=== PATIENT | male | born 1990 | race Caucasian/White ===

== ENCOUNTER 2022-05-20 12:10 | Emergency (ER) | payer SELFPAY ==
[2022-05-20 12:12] VITALS: BP 126/73; PULSE 112; RESP 20; TEMP 36.6; O2SAT 91; BMI 31.8
--- NOTE | 2022-05-20 12:17 | ED.RN ---
NO OLD EKGS.
--- NOTE | 2022-05-20 12:27 | RAD_ITS ---
STUDY: X-RAY CHEST REASON FOR EXAM: Male, 32 years old. Chest pain TECHNIQUE: Single AP portable view of the chest. COMPARISON: None. FINDINGS: Lungs are hypoinflated. There is subtle increased linear density in the lower lung zones. There is no demonstrated pleural abnormality. Normal size heart. Normal mediastinum and guido. Normal visualized pulmonary arteries. Normal visualized aortic arch and descending thoracic aorta. Normal visualized thoracic spine. Normal visualized ribs, clavicles, and shoulders. There is no demonstrated abnormality of the visualized soft tissue structures of the upper abdomen. RAD/Chest 1 View (Portable) IMPRESSION: Hypoinflated lungs. Minimal midlung zone atelectasis. Recommend consideration for PA and lateral film of the chest for clarification if possible. Electronically Signed: Monica Chavez MD at 13:22 EST ,
--- NOTE | 2022-05-20 12:27 | EKG12_ITS ---
Test Reason : CP Blood Pressure : / mmHG Vent. Rate : 105 BPM Atrial Rate : 105 BPM P-R Int : 164 ms QRS Dur : 082 ms QT Int : 362 ms P-R-T Axes : 053 -40 021 degrees QTc Int : 478 ms Sinus tachycardia Left axis deviation Inferior infarct , age undetermined Abnormal ECG Confirmed by ALONSO PERRY, COTY ([id number]), department editor AYESHA LABOY ([id number]) on 05/23/2022 12:19:50 PM Referred By: BUCK Confirmed By:COTY GUPTA MD
--- NOTE | 2022-05-20 12:28 | EDS_ITS ---
HPI History of Present Illness Chief Complaint: Chest Pain Informant: patient and spouse/S.O. Narrative Narrative: 32-year-old male presenting to the emergency department via EMS with a chief complaint of chest pain. Patient recently flew into town. He notes that he has had a prior mid LAD lesion that was stented about 3 years ago. Earlier this year he needed to have ankle surgery and underwent cardiac stress testing and echocardiogram did not have any difficulties with the surgery. He continues to smoke. He takes metoprolol as his only medication. He did have some nitroglycerin but they are and he states that that was not effective at home but the nitroglycerin that EMS gave did help. He noted a central chest pain that radiated up to his left jaw beginning at around 4:00 this morning. No significant sweating syncope or significant shortness of breath. Prehospital EKG was reviewed which showed a sinus tachycardia but no ACS. [facility] Medical History Myocardial infarct Home Medications metoprolol tartrate 50 mg tablet 50 mg PO BID 05/20/22 [History Last Taken Unknown] Allergy/AdvReac Type Severity Reaction Status Date / Time gabapentin Allergy Other Verified 05/20/22 12:12 onion Allergy PT UNABLE Verified 05/20/22 12:12 TO RESPOND-NEEDS F/U Surgical History History of coronary angioplasty with insertion of stent Social History (Updated 05/20/22 @ 12:[address] Daron Sales DO) Smoking Status: Current every day smoker tobacco type: cigarettes substance use type: does not use ROS ROS ED Constitutional Constitutional ED: Denies chills or weight loss Eyes Eyes: Denies change in vision or diplopia ENT ENT ED: Denies ear pain, rhinorrhea or sore throat Cardiovascular Cardiovascular: Reports chest pain; Denies orthopnea, palpitations or racing heartbeat Respiratory/Chest Respiratory/Chest: Denies cough, dyspnea or orthopnea Gastrointestinal Gastrointestinal: Denies abdominal pain, diarrhea, nausea or vomiting Genitourinary Genitourinary ED: Denies dysuria, hematuria or urinary frequency Musculoskeletal Musculoskeletal: Denies arthralgias or myalgias Integumentary Denies abscess or rash Neurologic Neurologic: Denies headache(s) or weakness Psychiatric Psychiatric: Denies anxiety, depression, suicidal ideation or suicidal thoughts Endocrine Endocrinology: Denies polydipsia, polyphagia or polyuria Allergic/Immunologic Allergic/Immunologic ED: Denies mouth swelling, tongue swelling or urticaria EXAM Physical Exam Const Vital Signs: 05/20/22 12:12 05/20/22 13:26 05/20/22 13:32 Temperature 97.9 F Temperature Source Temporal Pulse Rate 112 H 96 91 Respiratory Rate 20 H 16 20 H Blood Pressure 126/73 H 142/98 H 134/99 H Blood Pressure Mean 90 112 110 Pulse Ox 91 96 93 Oxygen Delivery Method Room Air Room Air Room Air Positive well nourished and well developed General Appearance ED: well developed HEENT Reports normocephalic, head/scalp atraumatic and moist mucous membranes Eyes PERRL and EOMs intact bilaterally Neck no lymphadenopathy, supple and no JVD Resp normal respiratory effort and clear to auscultation bilaterally Cardio regular rate, regular rhythm and no murmurs GI normal to inspection, nondistended, normoactive bowel sounds and non-tender Palpation: soft Back/Spine no CVA tenderness and normal ROM Extremity normal to inspection General Extremety ED: Negative for edema General Extremity: Negative for edema Neuro oriented x3 and CN's II-XII intact bilaterally Sensorium / Orientation: alert Motor Exam: strength 5/5 throughout Psych mental status grossly normal Mood & Affect: Negative for depressed or tearful Skin no rashes or lesions noted and no wounds MDM MDM MDM Narrative Medical decision making narrative: My interpretation of the chest x-ray is no acute process. Initial troponin is 5 and this is very important as his symptoms started at 4:00 and were continuous for over 6 hours. D-dimer unfortunately is elevated at 1.11 therefore a CTA of the chest was obtained. The patient became anxious did not want to stay for the CTA he received Vistaril and he stayed for the CTA but then wanted to leave and did not stay for the CT results. He has signed out AMA and appears to have the capacity to make this decision. The CTA did not demonstrate any pulmonary embolism but there was some changes consistent with esophagitis. Perhaps this was the cause of his pain Lab Data Attestation: I reviewed the patient's lab results. Labs: Laboratory Results - last 24 hr 05/20/22 05/20/22 05/20/22 12:30 12:30 12:34 WBC 8.8 RBC 5.17 Hgb 15.5 Hct 45.2 MCV 87.4 MCH 30.0 MCHC 34.3 RDW Std Deviation 45.1 H RDW Coeff of Saji 14.1 Plt Count 249 MPV 10.4 Immature Gran % (Auto) 0.700 Neut % (Auto) 71.4 H Lymph % (Auto) 20.2 [place] % (Auto) 7.3 Eos % (Auto) 0.1 Baso % (Auto) 0.3 Absolute Neuts (auto) 6.3 Absolute Lymphs (auto) 1.78 Nucleated RBC % 0 PT 14.5 INR 1.2 APTT 26.7 D-Dimer Quant (PE/DVT) 1.11 H* Sodium 145 Potassium 2.9 L Chloride 111 H Carbon Dioxide 27.0 Anion Gap 7 BUN 3 L Creatinine 0.66 L Estim Creat Clear Calc 162.84 Est GFR (MDRD) Af Amer 179 Est GFR (MDRD) Non-Af 148 BUN/Creatinine Ratio 4.6 L Glucose 98 Calcium 8.0 L Troponin I High Sens 5 Radiography Diagnostic Testing: Clinical Impression(s) from Imaging Studies Chest X-Ray 05/20/22 12:27 IMPRESSION: Hypoinflated lungs. Minimal midlung zone atelectasis. Recommend consideration for PA and lateral film of the chest for clarification if possible. Electronically Signed: Monica Chavez MD at 13:22 EST , Chest CTA 05/20/22 13:04 IMPRESSION: Thick-walled distended appearing esophagus suspicious for esophagitis without exclusion of atypia. Recommend consideration for follow-up endoscopy. There is a minimal hiatal hernia. No visualized pulmonary embolism. Minimal lower lobe atelectasis. Nonspecific mild loss of height of the upper thoracic vertebral bodies. Hepatic steatosis. Borderline splenomegaly. Electronically Signed: Monica Chavez MD at 14:21 EST , EKG Initial EKG: Attestation: I personally reviewed and interpreted this EKG as follows: Comments: Sinus tachycardia with a ventricular rate of 105 bpm. I do not see any concerning features of ACS. Discharge Plan Triage Chief Complaint: Chest Pain ED Provider: Daron Sales Dx/Rx/DC Orders Clinical Impression: Chest pain, CAD (coronary artery disease) Instructions: ED Chest Pain, Uncertain Cause Prescriptions: No Action metoprolol tartrate 50 mg Tablet 50 mg PO BID Primary Care Provider: Care Physician,No Primary Referrals: NOT,DEFINED [Non-Staff] - Disposition Disposition: Against Medical Advice Discharge Date/Time: 05/20/22 14:37
[2022-05-20 12:40] LABS: Absolute Lymphocyte Count 1.78 X10^3/uL (0.83-4.51); Absolute Neutrophil Count 6.3 X10^3/uL (2.0-7.7); Basophil# 0.03 X10^3/uL; Basophil% 0.3 % (0-1); Eosinophil# 0.01 X10^3/uL; Eosinophils% 0.1 % (0-5); Hematocrit 45.2 % (40-54); Hemoglobin 15.5 g/dL (13.0-16.5); Lymphocyte # 1.78 X10^3/ul (0.83-4.51); Lymphocyte % 20.2 % (19-41); Mean Corp Hgb Conc 34.3 g/dL (32-36); Mean Corpuscular Volume 87.4 fL (80-94); Mean Platelet Vol. 10.4 fl (6.2-12.0); Monocyte# 0.64 X10^3/uL; Monocyte% 7.3 % (0-10); NRBC Flagged by Analyzer 0 % (0-5); Neutrophil % 71.4 % (47-70); Platelet Count 249 K/mm3 (150-450); RBC Distribution Width CV 14.1 % (11.6-14.6); RBC Distribution Width SD 45.1 fl (35.1-43.9); Red Blood Count 5.17 M/mm3 (4.6-6.2); White Blood Count 8.8 K/mm3 (4.4-11.0)
[2022-05-20 12:54] LABS: D-Dimer Quantitative (DVT/PE) 1.11 FEU/ug/m (0.27-0.49)
[2022-05-20 12:58] LABS: International Normalized Ratio 1.2; Prothrombin Time (Protime)PT. 14.5 SECONDS (11.7-14.9)
[2022-05-20 12:59] LABS: Partial Thromboplast Time 26.7 Seconds (24.1-36.2)
[2022-05-20 13:00] LABS: Anion Gap 7 (5-15); BUN 3 mg/dL (7-18); BUN/Creat Ratio 4.6 RATIO (10-20); Chloride 111 mmol/L (98-107); Creatinine, Serum 0.66 mg/dL (0.70-1.30); EST Glomerular Filtration Rate 148 mL/min (>60); Est Glom Filt Rate - Afr Amer 179 mL/min (>60); Estimated Creatinine Clearance 162.84 ml/min; Glucose 98 mg/dL (74-106); Potassium 2.9 mmol/L (3.5-5.1); Sodium Level 145 mmol/L (136-145); Troponin-I HS (w/2H Reflex) 5 pg/mL (3.0-78.0)
--- NOTE | 2022-05-20 13:04 | CT_ITS ---
STUDY: CTA CHEST REASON FOR EXAM: Male, 32 years old. Pulmonary embolism elevated ddimer RADIATION DOSAGE (If Supplied By Facility): CTDIvol = ( 13.47 ) mGy, DLP = ( 437.65 ) mGycm TECHNIQUE: The examination was performed with the intravenous administration of IV 100mL Isovue-370. Post-processing of the angiographic images was performed, with multiplanar reformation and 3D reconstruction. Individualized dose optimization techniques were used for this CT. COMPARISON: May 20, 2022 chest x-ray FINDINGS: Normal enhancement of the main pulmonary artery and right and left pulmonary arteries. Normal enhancement of the bilateral peripheral pulmonary arteries. There is no demonstrated pulmonary embolism. Normal thoracic aorta and visualized great vessels. There is no demonstrated aortic dissection. Normal heart and pericardium. There is a distended thick-walled appearance of the esophagus especially towards the distal aspect of the esophagus. The wall measures up to 8 mm in. There is adjacent fluid at the level of the gastroesophageal junction. Normal hilar regions. Normal visualized trachea and bronchi. There is minimal lower lobe atelectasis without definitive focal infiltrate. Normal pleura. Normal chest wall structures. There is visualized age-indeterminate mild loss of height of the thoracic vertebral bodies within the upper thoracic spine. The liver is enlarged and fatty infiltrated. There is borderline splenomegaly. There is a hiatal hernia. CT/CTA Chest W/WO Contrast IMPRESSION: Thick-walled distended appearing esophagus suspicious for esophagitis without exclusion of atypia. Recommend consideration for follow-up endoscopy. There is a minimal hiatal hernia. No visualized pulmonary embolism. Minimal lower lobe atelectasis. Nonspecific mild loss of height of the upper thoracic vertebral bodies. Hepatic steatosis. Borderline splenomegaly. Electronically Signed: Monica Chavez MD at 14:21 EST ,
--- NOTE | 2022-05-20 13:04 | NURSING ---
NO OLD EKGS
--- NOTE | 2022-05-20 13:10 | ED.RN ---
PT RINGS CALL LIGHT, REPORTS FEELING INCREASINGLY ANXIOUS. PT REPORTS HE WANTS TO LEAVE AMA. THIS RN OFFERS EMOTIONAL SUPPORT, PT PERSISTS THAT HE WANTS TO LEAVE. PT REPORTS HE WILL AIT TO LEAVE AFTER HE TALKS TO MD. DR. JANE AT BEDSIDE TO SPEAK WITH PATIENT.
[2022-05-20] MEDS: hydrOXYzine PAM 25 MG Capsule 50 MG PO (13:22)
[2022-05-20 13:26] VITALS: BP 142/98; PULSE 96; RESP 16; O2SAT 96
[2022-05-20 13:32] VITALS: BP 134/99; PULSE 91; RESP 20; O2SAT 93
--- NOTE | 2022-05-20 13:32 | ED.RN ---
THIS RN RETURN TO BEDSIDE TO FOLLOW UP WITH PT REGARDING THE DISCUSSION HE HAD WITH DR. JANE. PT STILL UNDECIDED. BOYFRIEND AT BEDSIDE TRYING TO CONVINCE PT TO STAY FOR FURTHER TESTING. PT REPORTS CONTINUED ANXIETY. D/C SELF FROM VERIFICATION LEAD. PT THEN AGREE TO STAY LONG ENOUGH FOR THE CT. PT GIVEN MEDS FOR ANXIETY, SEE MAR. PT AGREES TO WEAR VERIFICATION LEAD, MONITOR REPLACED BY THIS RN.
[2022-05-20 14:33] LABS: Reflex Troponin-HS? (from REC) Y
--- NOTE | 2022-05-20 14:37 | ED.RN ---
pt signed out ama
== END 2022-05-20 14:37 | disposition left against medical advice (07) ==
PROVIDERS: Emergency Provider Emergency Medicine; Visit Provider Emergency Medicine
DX: R07.9 Chest pain, unspecified (principal); I25.10 Atherosclerotic heart disease of native coronary artery without angina pectoris; R00.0 Tachycardia, unspecified; Z53.29 Procedure and treatment not carried out because of patient's decision for other reasons; F17.210 Nicotine dependence, cigarettes, uncomplicated
CPT/HCPCS: 71045; 71275; 80048; 84484; 85025; 85379; 85610; 85730; 93005; 99285; Q9967; A4216

== ENCOUNTER 2022-08-28 09:17 | Inpatient (IN) | payer MEDICAID, SELFPAY ==
[2022-08-28] VITALS (7 sets, daily range): BP systolic 126–144; BP diastolic 82–101; PULSE 84–114; RESP 16–18; TEMP 36.1–37; O2SAT 96–100; BMI 29.1; BMI 29.0
--- NOTE | 2022-08-28 10:00 | EDS_ITS ---
HPI History of Present Illness Chief Complaint: Substance Abuse Narrative Narrative: 32-year-old male presenting for alcohol detox. He states has been clean for several years. Due to leg pain from a failed surgery in his left leg he started drinking more over the last week and a half. He admits to about 10-15 tall boys a day. He has not been eating or drinking. He states he had green diarrhea. He states he is only drinking alcohol to help his pain. Patient denies fever, chills. He is not having abdominal pain. He does still complain of severe left leg pain. He states that he did attempt to go to an outpatient facility but they wanted $20,000 upfront and he did not have the money for this. He does report that he gets violently ill if he tries to detox at home. [facility] Medical History History of ankle fracture Myocardial infarct Home Medications metoprolol tartrate 50 mg tablet 50 mg PO BID 05/20/22 [History Last Taken Unknown] Allergy/AdvReac Type Severity Reaction Status Date / Time gabapentin Allergy Other Verified 08/28/22 09:21 onion Allergy PT UNABLE Verified 08/28/22 09:21 TO RESPOND-NEEDS F/U melatonin AdvReac Other Verified 08/28/22 09:21 Surgical History History of coronary angioplasty with insertion of stent Hx of total ankle replacement Social History Smoking Status: Current every day smoker tobacco type: cigarettes substance use type: does not use ROS ROS ED Constitutional Constitutional ED: Denies chills or fever(s) Eyes Eyes: Denies change in vision or diplopia ENT ENT ED: Denies rhinorrhea or sore throat Cardiovascular Cardiovascular: Denies chest pain or palpitations Respiratory/Chest Respiratory/Chest: Denies cough or dyspnea Gastrointestinal Gastrointestinal: Reports nausea and vomiting Genitourinary Genitourinary ED: Denies dysuria Musculoskeletal Musculoskeletal: Denies arthralgias or back pain Integumentary Denies abscess or Abrasions Neurologic Neurologic: Denies headache(s) or paresthesias Psychiatric Psychiatric: Denies anxiety or depression EXAM Physical Exam Const Vital Signs: 08/28/22 09:18 Temperature 98.6 F Temperature Source Temporal Pulse Rate 114 H Respiratory Rate 16 Blood Pressure 134/100 H Blood Pressure Mean 111 Oxygen Delivery Method Room Air Positive well nourished General Appearance ED: NAD; Negative for pallor HEENT Reports moist mucous membranes Eyes PERRL and EOMs intact bilaterally Neck no lymphadenopathy Chest Wall inspection of chest normal and palpation of chest normal Resp normal respiratory effort and clear to auscultation bilaterally Auscultation: Negative for rales, rhonchi or wheezes Cardio regular rate Rate: tachycardic Extremity Extremity Narrative: Surgical scar midline left ankle. No significant swelling or erythema. Patient ambulatory. Neuro oriented x3 and CN's II-XII intact bilaterally Sensorium / Orientation: alert Psych mental status grossly normal and thought process normal Skin General Skin Exam: Negative for jaundice or pallor MDM MDM MDM Narrative Medical decision making narrative: Patient presenting for alcohol detox. He states last drink was today. He wants to detox from alcohol so that he can have a revision surgery on his left ankle. He recently had images of it which showed screws were loose. He states that he was drinking alcohol to deal with the pain. CBC obtained to assess blood cell count, hemoglobin, platelets and differential. CMP to assess liver function, renal function, electrolytes, anion gap. EtOH level was obtained as well as drug abuse screen. Lipase to assess for pancreatitis. Lab work-up fairly unremarkable. Alcohol level 234. Drug of abuse screen negative. Patient discussed with hospitalist for admission. Patient transferred to floor in stable condition. Impression: 1. EtOH intoxication 2. Desire for EtOH detox Lab Data Labs: Laboratory Results - last 24 hr 08/28/22 08/28/22 08/28/22 09:50 09:50 09:50 WBC 9.8 RBC 5.67 Hgb 17.2 H Hct 49.2 MCV 86.8 MCH 30.3 MCHC 35.0 RDW Std Deviation 41.3 RDW Coeff of Saji 13.2 Plt Count 321 MPV 9.5 Immature Gran % (Auto) 0.300 Neut % (Auto) 70.7 H Lymph % (Auto) 19.8 [place] % (Auto) 8.6 Eos % (Auto) 0.2 Baso % (Auto) 0.4 Absolute Neuts (auto) 7.0 Absolute Lymphs (auto) 1.94 Nucleated RBC % 0 Sodium 138 Potassium 3.7 Chloride 101 Carbon Dioxide 26.0 Anion Gap 11 BUN 3 L Creatinine 0.68 L Estim Creat Clear Calc 158.05 Est GFR (MDRD) Af Amer 173 Est GFR (MDRD) Non-Af 143 BUN/Creatinine Ratio 4.4 L Glucose 96 Calcium 9.2 Total Bilirubin 0.40 AST 49 H ALT 55 Alkaline Phosphatase 134 H Total Protein 7.5 Albumin 3.8 Globulin 3.7 Albumin/Globulin Ratio 1.0 Lipase Urine Opiates Screen Urine Methadone Screen Ur Barbiturates Screen Ur Phencyclidine Scrn Ur Amphetamines Screen MDMA (Ecstasy) Screen U Benzodiazepines Scrn Urine Cocaine Screen U Cannabinoids Screen Ur Drug Screen Comment Ethyl Alcohol 234.0 08/28/22 08/28/22 09:50 10:30 WBC RBC Hgb Hct MCV MCH MCHC RDW Std Deviation RDW Coeff of Saji Plt Count MPV Immature Gran % (Auto) Neut % (Auto) Lymph % (Auto) [place] % (Auto) Eos % (Auto) Baso % (Auto) Absolute Neuts (auto) Absolute Lymphs (auto) Nucleated RBC % Sodium Potassium Chloride Carbon Dioxide Anion Gap BUN Creatinine Estim Creat Clear Calc Est GFR (MDRD) Af Amer Est GFR (MDRD) Non-Af BUN/Creatinine Ratio Glucose Calcium Total Bilirubin AST ALT Alkaline Phosphatase Total Protein Albumin Globulin Albumin/Globulin Ratio Lipase 56 L Urine Opiates Screen NEGATIVE Urine Methadone Screen NEGATIVE Ur Barbiturates Screen NEGATIVE Ur Phencyclidine Scrn NEGATIVE Ur Amphetamines Screen NEGATIVE MDMA (Ecstasy) Screen NEGATIVE U Benzodiazepines Scrn NEGATIVE Urine Cocaine Screen NEGATIVE U Cannabinoids Screen NEGATIVE Ur Drug Screen Comment Ethyl Alcohol Discharge Plan Triage Chief Complaint: Substance Abuse ED Provider: Eron Klein Dx/Rx/DC Orders Prescriptions: No Action metoprolol tartrate 50 mg Tablet 50 mg PO BID Primary Care Provider: Dillon Deleon Referrals: Care Physician,No Primary [Non-Staff] -
[2022-08-28 10:01] LABS: Absolute Lymphocyte Count 1.94 X10^3/uL (0.83-4.51); Basophil# 0.04 X10^3/uL; Basophil% 0.4 % (0-1); Eosinophil# 0.02 X10^3/uL; Eosinophils% 0.2 % (0-5); Hematocrit 49.2 % (40-54); Hemoglobin 17.2 g/dL (13.0-16.5); Lymphocyte # 1.94 X10^3/ul (0.83-4.51); Lymphocyte % 19.8 % (19-41); Mean Corpuscular Hgb 30.3 pg (27.0-32.0); Mean Corpuscular Volume 86.8 fL (80-94); Mean Platelet Vol. 9.5 fl (6.2-12.0); Monocyte# 0.84 X10^3/uL; Monocyte% 8.6 % (0-10); NRBC Flagged by Analyzer 0 % (0-5); Neutrophil # 6.95 X10^3/uL (2.7-7.7); Neutrophil % 70.7 % (47-70); Platelet Count 321 K/mm3 (150-450); RBC Distribution Width CV 13.2 % (11.6-14.6); RBC Distribution Width SD 41.3 fl (35.1-43.9); Red Blood Count 5.67 M/mm3 (4.6-6.2); White Blood Count 9.8 K/mm3 (4.4-11.0)
--- NOTE | 2022-08-28 10:10 | CM.ED ---
Social Work Note Referral Source: MD Klein Referral Reason: DARIO Klein met with JESSIE and briefly reviewed patient's symptoms as well as interest in detox program. SW to follow up. SW met with patient and patient's significant other and introduced herself and role as [facility] Director Client Services. Patient was agreeable to speak to SW with significant other present. SW inquired about patient's interest in detox and current AOD use. Patient reports he typically drinks 19 24oz cans of alcohol and his last drink was this morning. SW reviewed [facility] rules including no outside guests, personal belongings are locked up and patient will meet with Kavin, additions counselor, to discuss after care options and discharge planning. Patient reports he was told by his RN guests are allowed. SW explained she would double check but recalls guests aren't allowed and support people are only able to get limited information from nursing staff. JESSIE contacted [place] group therapy counselor to inquire about [facility] visitor rules, group therapy counselor confirmed no visitors and significant others are given very limited information regarding treatment. JESSIE met with patient and confirmed that guests are not permitted. Patient reports understanding and states he was encouraged to contact [facility] to discuss changing his managed plan carrier as [facility] does not accept [employer]. No other needs voiced at this time. [facility] registration staff met with JESSIE and explained the patient was able to switch insurance, however, the change won't start until September 16. Registration staff provided patient with [employer] forms to assist with any bills he received. JESSIE updated treatment navigator patient is in [id number]. Kelsea Rm PINION POLISHER, TORI
[2022-08-28] MEDS: LORazepam 2 MG/ML Syringe 1 MG IV (10:11)
[2022-08-28] MEDS: Ondansetron 4 MG/2 ML Vial IV (10:11)
[2022-08-28] MEDS: 0.9% Normal Saline 1,000 ML 999 ML IV (10:11)
[2022-08-28 10:16] LABS: AST(SGOT) 49 U/L (15-37); Alanine Aminotransfer ALT/SGPT 55 U/L (16-61); Albumin, Serum 3.8 g/dL (3.2-5.0); Alkaline Phosphatase 134 U/L (45-117); Anion Gap 11 (5-15); BUN 3 mg/dL (7-18); BUN/Creat Ratio 4.4 RATIO (10-20); Calcium,Total 9.2 mg/dL (8.5-10.1); Chloride 101 mmol/L (98-107); Creatinine, Serum 0.68 mg/dL (0.70-1.30); EST Glomerular Filtration Rate 143 mL/min (>60); Est Glom Filt Rate - Afr Amer 173 mL/min (>60); Estimated Creatinine Clearance 158.05 ml/min; Globulin 3.7 g/dL (2.2-4.2); Glucose 96 mg/dL (74-106); Potassium 3.7 mmol/L (3.5-5.1); Protein, Total 7.5 g/dL (6.4-8.2); Sodium Level 138 mmol/L (136-145)
[2022-08-28 10:34] LABS: Lipase 56 U/L (73-393)
[2022-08-28 10:57] LABS: Amphetamine Urine VISTA NEGATIVE (<1000 ng/mL); Barbiturate Urine VISTA NEGATIVE (< 200 ng/mL); Benzodiazepine Urine VISTA NEGATIVE (< 200 ng/mL); Cocaine Urine VISTA NEGATIVE (< 300 ng/mL); Ecstacy Urine VISTA NEGATIVE (< 500 ng/mL); Methadone Urine VISTA NEGATIVE (< 300 ng/mL); PCP Urine VISTA NEGATIVE (< 25 ng/mL); THC Urine VISTA NEGATIVE (< 50 ng/mL); Vista UDS pH Range 7
--- NOTE | 2022-08-28 11:55 | HP.PCM.HOS_ITS ---
HPI - General General Date of Admission: 08/28/22 Date of Service: 08/28/22 Chief Complaint: alcohol withdrawal HPI Narrative MOHINDER FLORES, is a 32 M who presents seeking treatment for alcohol withdrawal. Patient drinks 10-15 tall boys (24 oz) beer or Preet's hard lemonade daily for the past week. He states has been drinking more now over the past week due to increased pain in his left ankle. In October of last year, patient broke his ankle when he was going down stairs. Most recently, has been having increased pain and been seeing orthopedics for this. Apparently there was loosening of the hardware that in place that will need to be removed. Patient is planning on having surgery done next week and would like to go through alc ohol withdrawal treatment beforehand. Before his pain started getting worse this past week, he was drinking at least a 12 pack of beer per day. Patient has had issues with severe alcohol withdrawal in the past and would like to get through his alcohol withdrawal before he undergoes surgery. Additionally, patient has been having angina. In 2019, patient underwent cardiac catheterization and had a stent placed for myocardial infarction. Patient has recently seen a women's activities adviser who has cleared him to undergo surgery of the patient does have a echocardiogram ordered for the next . [facility] Medical History (Updated 08/28/22 @ 12:[address] Jake Martino DO) Back fracture ETOH abuse History of ankle fracture Hyponatremia Myocardial infarct Home Medications metoprolol tartrate 50 mg tablet 100 mg PO DAILY 05/20/22 [History Last Taken Unknown] desvenlafaxine 100 mg tablet,extended release 24 hr 100 mg PO DAILY 08/28/22 [History Last Taken Unknown] oxycodone-acetaminophen 10 mg-325 mg tablet 1 tab PO Q8H PRN Pain 08/28/22 [History Last Taken Unknown] Allergy/AdvReac Type Severity Reaction Status Date / Time gabapentin Allergy Other Verified 08/28/22 09:21 onion Allergy PT UNABLE Verified 08/28/22 09:21 TO RESPOND-NEEDS F/U melatonin AdvReac Other Verified 08/28/22 09:21 Surgical History (Updated 08/28/22 @ 11:58 by Sumaya Orta) History of ankle surgery History of coronary angioplasty with insertion of stent Social History (Updated 08/28/22 @ 11:[address] Jake Martino DO) Smoking Status: Current every day smoker tobacco type: cigarettes alcohol intake: current alcohol intake frequency: 3 or more drinks per day Alcohol type: beer and hard liquor substance use type: does not use ROS ROS Narrative All review of systems were negative except as mentioned above in the history of present illness and the other review of systems. Vital Signs Vital Signs Vital Signs: 08/28/22 09:18 08/28/22 11:12 08/28/22 11:18 Temperature 37.0 C 36.1 C L Temperature Source Temporal Temporal Pulse Rate 114 H 92 92 Respiratory Rate 16 18 18 Blood Pressure 134/100 H 126/84 H 126/84 H Blood Pressure Mean 111 98 98 Blood Pressure Source Monitor Blood Pressure Position Supine Blood Pressure Location Left Arm Pulse Ox 98 99 Oxygen Delivery Method Room Air Room Air Room Air 08/28/22 11:18 08/28/22 11:48 Temperature 36.7 C Temperature Source Oral Pulse Rate 96 Respiratory Rate 16 18 Blood Pressure 132/100 H Blood Pressure Mean 110 Blood Pressure Source Monitor Blood Pressure Position Semi-Fowlers Blood Pressure Location Right Arm Pulse Ox 100 Oxygen Delivery Method Room Air Weight Weight: 91.852 kg Body Mass Index (BMI) 29.0 Physical Exam Const alert and no apparent distress HEENT normocephalic, head/scalp atraumatic and hearing grossly normal bilaterally Resp normal respiratory effort, no retractions, no use of accessory muscles and clear to auscultation bilaterally Cardio regular rate, regular rhythm, S1 normal heart sound and S2 normal heart sound GI normal to inspection, nondistended, normoactive bowel sounds, soft to palpation, non-tender and non-distended Extremity Extremity Narrative: Slight edema of the left ankle but no warmth. Neuro moves all extremities and no focal motor deficits Results Lab / Micro Data Result Diagrams: 08/28/22 09:50 08/28/22 09:50 Labs: Laboratory Results - last 24 hr 08/28/22 09:50: WBC 9.8, RBC 5.67, Hgb 17.2 H, Hct 49.2, MCV 86.8, MCH 30.3, MCHC 35.0, RDW Std Deviation 41.3, RDW Coeff of Saji 13.2, Plt Count 321, MPV 9.5, Immature Gran % (Auto) 0.300, Neut % (Auto) 70.7 H, Lymph % (Auto) 19.8, [place] % (Auto) 8.6, Eos % (Auto) 0.2, Baso % (Auto) 0.4, Absolute Neuts (auto) 7.0, Absolute Lymphs (auto) 1.94, Nucleated RBC % 0 08/28/22 09:50: Sodium 138, Potassium 3.7, Chloride 101, Carbon Dioxide 26.0, Anion Gap 11, BUN 3 L, Creatinine 0.68 L, Estim Creat Clear Calc 158.05, Est GFR (MDRD) Af Amer 173, Est GFR (MDRD) Non-Af 143, BUN/Creatinine Ratio 4.4 L, Glucose 96, Calcium 9.2, Total Bilirubin 0.40, AST 49 H, ALT 55, Alkaline Phosphatase 134 H, Total Protein 7.5, Albumin 3.8, Globulin 3.7, Albumin/Globulin Ratio 1.0 08/28/22 09:50: Ethyl Alcohol 234.0 08/28/22 09:50: Lipase 56 L 08/28/22 10:30: Urine Opiates Screen NEGATIVE, Urine Methadone Screen NEGATIVE, Ur Barbiturates Screen NEGATIVE, Ur Phencyclidine Scrn NEGATIVE, Ur Amphetamines Screen NEGATIVE, MDMA (Ecstasy) Screen NEGATIVE, U Benzodiazepines Scrn NEGATIVE, Urine Cocaine Screen NEGATIVE, U Cannabinoids Screen NEGATIVE, Ur Drug Screen Comment Assessment & Plan Assessment/Plan (1) Alcohol withdrawal: PLAN: Initiate treatment with phenobarbital. Thiamine and folate Supportive management with as needed medication (2) Hardware failure: PLAN: Left ankle Patient is already seen orthopedics and reports to me that there is been no concern for infection. Clinically, the joint is not warm nor thematous Patient is to have surgery tentatively for sometime next week (3) Angina pectoris, unspecified: PLAN: Has seen cardiology as outpatient and has been reportedly is cleared. We will check an EKG here. PLAN: Plan Chronic conditions * Coronary artery disease: Not on any statins nor any antiplatelet medications. Continue with metoprolol tartrate * Depression: Continue with desvenlafaxine VTE prophylaxis: Low risk not indicated. Case discussed with patient's fianc? at bedside. Charges/Coding Visit Charges Inpatient E&M: 68139 Init Hosp L2
--- NOTE | 2022-08-28 12:08 | EKG12_ITS ---
Test Reason : ADMISSION Blood Pressure : / mmHG Vent. Rate : 079 BPM Atrial Rate : 079 BPM P-R Int : 188 ms QRS Dur : 084 ms QT Int : 400 ms P-R-T Axes : 047 -19 022 degrees QTc Int : 458 ms Normal sinus rhythm Inferior infarct , age undetermined Abnormal ECG Confirmed by FIDEL PERRY, POLINA ([id number]), multimedia editor AYESHA LABOY ([id number]) on 08/30/2022 9:58:41 AM Referred By: RAINA Confirmed By:POLINA PARRA MD
[2022-08-28] MEDS: Phenobarbital 32.4 MG Tablet 64.8 MG PO ×3 (13:09→20:34)
[2022-08-28] MEDS: Acetaminophen 500 MG Tablet 1000 MG PO (13:10)
[2022-08-28] MEDS: Venlafaxine XR 75 MG Capsule PO (13:11)
[2022-08-28] MEDS: Metoprolol Tartrate 100 MG Tablet PO (13:11)
[2022-08-28] MEDS: Lidocaine 5% Patch 1 PATCH TOPICAL (13:12)
[2022-08-28] MEDS: 0.9% Saline Lock 10 ML Syringe IV (13:15)
[2022-08-28] MEDS: Folic Acid 1 MG Tablet PO (13:54)
[2022-08-28] MEDS: hydrOXYzine PAM 25 MG Capsule 50 MG PO ×2 (13:54→18:07)
[2022-08-28] MEDS: Thiamine Hydrochloride 100 MG Tablet PO (13:54)
--- NOTE | 2022-08-28 15:49 | ADDICTION ---
TW met with pt to complete ASAM, AUDIT, DUDIT, MSE, and begin D/C Planning. Pt stated he has only lived in [place] for 3 months and currently has insurance that does not cover residential treatment within 100 miles of his location. Pt shared that he has f/u appointments to get metal removed from his leg on 09/01, 09/04, and 09/06. He reported he needed to go through detox before his surgery. He reported he is drinking due to chronic pain and is hopeful the surgery will help. He is interested in f/u treatment. TW provided resources for [facility] and AA meetings in [place]. TW will come back tomorrow to see if pt wants to schedule an appt with [facility].
[2022-08-28] MEDS: Ondansetron 8 MG Tablet PO (17:22)
[2022-08-28] MEDS: Dicyclomine 10 MG Capsule 20 MG PO (20:34)
[2022-08-29] VITALS (7 sets, daily range): BP systolic 132–137; BP diastolic 89–102; PULSE 85–99; RESP 18; TEMP 36.3–36.7; O2SAT 95–99
[2022-08-29] MEDS: Phenobarbital 32.4 MG Tablet 64.8 MG PO ×6 (00:46→21:09)
[2022-08-29] MEDS: hydrOXYzine PAM 25 MG Capsule 50 MG PO ×5 (00:46→21:09)
[2022-08-29] MEDS: 0.9% Saline Lock 10 ML Syringe IV ×3 (00:47→21:09)
[2022-08-29] MEDS: Acetaminophen 500 MG Tablet 1000 MG PO ×3 (05:30→21:11)
[2022-08-29] MEDS: Ondansetron 8 MG Tablet PO ×2 (05:36→14:48)
--- NOTE | 2022-08-29 07:35 | PN.HOSP_ITS ---
Reason for Visit Reason for Visit: Diagnoses Alcohol use, unspecified with withdrawal, unspecified (08/28/22) Angina pectoris, unspecified (08/28/22) Subjective Subjective Feeling okay. Denies any visual hallucinations but did hear a small dog jory gonzales. Is unclear if that was the actual dog that was in the hospital if he was hallucinating that. Still with the ankle pain. Patient declining Motrin given his history of gastritis and GI bleed. Is apprehensive about taking acetaminophen as he has been told he has had a fatty liver in the past. Objective Data Objective Data Vital Signs: Vital Signs Temp Pulse Resp BP Pulse Ox O2 Del Method 36.7 C 88 18 133/89 H 96 Room Air 08/29/22 05:29 08/29/22 05:29 08/29/22 05:29 08/29/22 05:29 08/29/22 05:29 08/29/22 05:29 Oxygen Delivery Method Room Air Weight: 91.852 kg Body Mass Index (BMI) 29.0 Intake & Output: Intake and Output for Last 24 Hours 08/27/22 08/28/22 08/29/22 23:59 23:59 23:59 Intake Total 2760 / 2760 800 / 800 Balance 2760 / 2760 800 / 800 Medical Nutrition Assessment Dietitian: Malnutrition Criteria Met Start: 08/28/22 16:26 Freq: Status: Active Protocol: Document 08/28/22 16:26 RMA (Rec: 08/28/22 16:27 RMA [id number]) Nutrition Malnutrition Evidence of Malnutrition Exists Yes Malnutrition (severe): Social/Behavioral/ Environmental Evidenced By Suboptimal Energy Intake ( Severe),Weight Loss (Severe) Clinical Problem Chronic Disease or Condition Related Malnutrition Etiology Severe protein-calorie malnutrition in the context of social circumstance related to ETOH abuse and inadequate oral intake Signs/Symptoms as evidenced by ~9% wt loss x 3 months and PO meeting less than 50% estimated nutrition needs x 1 month Status Active Problem Recommendation Dietitian Recommendations/Changes Continue regular diet with snacks as tolerated. 240 ml ensure plus BID w/ breakfast and dinner as tolerated. Lab / Micro Data Result Diagrams: 08/28/22 09:50 08/28/22 09:50 Labs: Laboratory Results - last 24 hr 08/28/22 09:50: WBC 9.8, RBC 5.67, Hgb 17.2 H, Hct 49.2, MCV 86.8, MCH 30.3, MCHC 35.0, RDW Std Deviation 41.3, RDW Coeff of Saji 13.2, Plt Count 321, MPV 9.5, Immature Gran % (Auto) 0.300, Neut % (Auto) 70.7 H, Lymph % (Auto) 19.8, [place] % (Auto) 8.6, Eos % (Auto) 0.2, Baso % (Auto) 0.4, Absolute Neuts (auto) 7.0, Absolute Lymphs (auto) 1.94, Nucleated RBC % 0 08/28/22 09:50: Sodium 138, Potassium 3.7, Chloride 101, Carbon Dioxide 26.0, Anion Gap 11, BUN 3 L, Creatinine 0.68 L, Estim Creat Clear Calc 158.05, Est GFR (MDRD) Af Amer 173, Est GFR (MDRD) Non-Af 143, BUN/Creatinine Ratio 4.4 L, Glucose 96, Calcium 9.2, Total Bilirubin 0.40, AST 49 H, ALT 55, Alkaline Phosphatase 134 H, Total Protein 7.5, Albumin 3.8, Globulin 3.7, Albumin/Globulin Ratio 1.0 08/28/22 09:50: Ethyl Alcohol 234.0 08/28/22 09:50: Lipase 56 L 08/28/22 10:30: Urine Opiates Screen NEGATIVE, Urine Methadone Screen NEGATIVE, Ur Barbiturates Screen NEGATIVE, Ur Phencyclidine Scrn NEGATIVE, Ur Amphetamines Screen NEGATIVE, MDMA (Ecstasy) Screen NEGATIVE, U Benzodiazepines Scrn NEGATIVE, Urine Cocaine Screen NEGATIVE, U Cannabinoids Screen NEGATIVE, Ur Drug Screen Comment Physical Exam Const alert and no apparent distress HEENT head/scalp atraumatic Extremity no clubbing, cyanosis or edema Extremity Narrative: Left ankle without warmth nor erythema. Neuro oriented x3 and moves all extremities Sensorium / Orientation: awake and alert Psych affect normal Assessment & Plan Assessment/Plan (1) Alcohol withdrawal: PLAN: Initiate treatment with phenobarbital. Thiamine and folate Supportive management with as needed medication (2) Hardware failure: PLAN: Left ankle Patient is already seen orthopedics and reports to me that there is been no concern for infection. Clinically, the joint is not warm nor thematous Patient is to have surgery tentatively for sometime next week Given the patient's impetus for seeking treatment is so that he can undergo surgery and not go through withdrawal and this may not be a long-term recovery solution for him, will initiate oxycodone's as needed. Informed the patient this would be a low-dose. (3) Angina pectoris, unspecified: PLAN: Has seen cardiology as outpatient and has been reportedly is cleared. We will check an EKG here. PLAN: Plan Chronic conditions * Coronary artery disease: Not on any statins nor any antiplatelet medications. Continue with metoprolol tartrate * Depression: Continue with desvenlafaxine VTE prophylaxis: Low risk not indicated. Charges/Coding Visit Charges Inpatient E&M: 66824 Subs Hosp L2
[2022-08-29] MEDS: Venlafaxine XR 75 MG Capsule PO (08:34)
[2022-08-29] MEDS: Folic Acid 1 MG Tablet PO (08:34)
[2022-08-29] MEDS: Thiamine Hydrochloride 100 MG Tablet PO (08:35)
[2022-08-29] MEDS: Metoprolol Tartrate 100 MG Tablet PO (08:35)
[2022-08-29] MEDS: Lidocaine 5% Patch 1 PATCH TOPICAL (08:39)
[2022-08-29] MEDS: Dicyclomine 10 MG Capsule 20 MG PO ×2 (09:41→16:41)
[2022-08-29] MEDS: oxyCODONE 5 MG Tablet PO ×3 (09:41→19:46)
--- NOTE | 2022-08-29 15:01 | ADDICTION ---
TW met with pt to f/u on d/c planning. Pt and TW completed d/c plan and it is placed in chart. Pt is f/u with outpatient individual counseling at [facility] in [place]. Appt is scheduled for 09/04/22 at 10AM.
[2022-08-30] MEDS: Phenobarbital 32.4 MG Tablet 64.8 MG PO ×4 (01:13→12:51)
[2022-08-30] MEDS: oxyCODONE 5 MG Tablet PO ×4 (01:14→14:13)
[2022-08-30] MEDS: hydrOXYzine PAM 25 MG Capsule 50 MG PO ×3 (01:14→11:16)
[2022-08-30 01:25] VITALS: BP 144/98; PULSE 66; RESP 15; TEMP 36.4; O2SAT 100
[2022-08-30 05:30] VITALS: BP 139/98; PULSE 90; RESP 99; TEMP 36.6; O2SAT 16
--- NOTE | 2022-08-30 08:16 | PN.HOSP_ITS ---
Reason for Visit Reason for Visit: Diagnoses Alcohol use, unspecified with withdrawal, unspecified (08/28/22) Angina pectoris, unspecified (08/28/22) Subjective Subjective Feeling better though stated that he did have some profound tremors and melissa phoresis last night. States that his ankle is better with the oxycodone and Lidoderm. Objective Data Objective Data Vital Signs: Vital Signs Temp Pulse Resp BP Pulse Ox O2 Del Method 36.6 C 90 99 H 139/98 H 16 Room Air 08/30/22 05:30 08/30/22 05:30 08/30/22 05:30 08/30/22 05:30 08/30/22 05:30 08/30/22 05:30 Oxygen Delivery Method Room Air Weight: 91.852 kg Body Mass Index (BMI) 29.0 Intake & Output: Intake and Output for Last 24 Hours 08/28/22 08/29/22 08/30/22 23:59 23:59 23:59 Intake Total 2760 / 2760 3140 / 3140 300 / 300 Balance 2760 / 2760 3140 / 3140 300 / 300 Medical Nutrition Assessment Dietitian: Malnutrition Criteria Met Start: 08/28/22 16:26 Freq: Status: Active Protocol: Document 08/28/22 16:26 RMA (Rec: 08/28/22 16:27 RMA [id number]) Nutrition Malnutrition Evidence of Malnutrition Exists Yes Malnutrition (severe): Social/Behavioral/ Environmental Evidenced By Suboptimal Energy Intake ( Severe),Weight Loss (Severe) Clinical Problem Chronic Disease or Condition Related Malnutrition Etiology Severe protein-calorie malnutrition in the context of social circumstance related to ETOH abuse and inadequate oral intake Signs/Symptoms as evidenced by ~9% wt loss x 3 months and PO meeting less than 50% estimated nutrition needs x 1 month Status Active Problem Recommendation Dietitian Recommendations/Changes Continue regular diet with snacks as tolerated. 240 ml ensure plus BID w/ breakfast and dinner as tolerated. Lab / Micro Data Result Diagrams: 08/28/22 09:50 08/28/22 09:50 Physical Exam Const alert and no apparent distress HEENT head/scalp atraumatic Resp normal respiratory effort, no retractions, no use of accessory muscles and clear to auscultation bilaterally Cardio regular rate, regular rhythm, S1 normal heart sound and S2 normal heart sound GI normal to inspection, nondistended, normoactive bowel sounds, soft to palpation, non-tender and non-distended Extremity Extremity Narrative: Left ankle with minimal erythema but tenderness to palpation medially and laterally with mild palpation. No warmth was noted. Assessment & Plan Assessment/Plan (1) Alcohol withdrawal: PLAN: Initiate treatment with phenobarbital. Thiamine and folate Supportive management with as needed medication Anticipate discharge on the . (2) Hardware failure: PLAN: Left ankle Patient is already seen orthopedics and reports to me that there is been no concern for infection. Clinically, the joint is not warm nor erythematous Patient is to have surgery tentatively for sometime next week Given the patient's impetus for seeking treatment is so that he can undergo surgery and not go through withdrawal and this may not be a long-term recovery solution for him, will initiate oxycodone's as needed. Informed the patient this would be a low-dose. Anticipate the patient will be discharged with a low- dose of oxycodone as well as instructed to get [id number] lidocaine patches. Patient to see his orthopedic doctor on the and then to follow-up with cardiology for further evaluation on the . (3) Angina pectoris, unspecified: PLAN: Has seen cardiology as outpatient and has been reportedly is cleared. We will check an EKG here. PLAN: Plan Chronic conditions * Coronary artery disease: Not on any statins nor any antiplatelet medications. Continue with metoprolol tartrate * Depression: Continue with desvenlafaxine VTE prophylaxis: Low risk not indicated. Charges/Coding Visit Charges Inpatient E&M: 79926 Subs Hosp L2
[2022-08-30 09:02] VITALS: PULSE 112
[2022-08-30] MEDS: Metoprolol Tartrate 100 MG Tablet PO (09:02)
[2022-08-30] MEDS: Folic Acid 1 MG Tablet PO (09:02)
[2022-08-30] MEDS: Venlafaxine XR 75 MG Capsule PO (09:02)
[2022-08-30] MEDS: Thiamine Hydrochloride 100 MG Tablet PO (09:03)
[2022-08-30] MEDS: Lidocaine 5% Patch 1 PATCH TOPICAL (09:10)
[2022-08-30 09:15] VITALS: BP 146/103; PULSE 112; RESP 18; TEMP 37.3; O2SAT 98
[2022-08-30] MEDS: 0.9% Saline Lock 10 ML Syringe IV (09:47)
[2022-08-30] MEDS: Acetaminophen 500 MG Tablet 1000 MG PO (14:13)
--- NOTE | 2022-08-30 15:48 | NURSING ---
Pt requesting to leave AMA. Pt wants to leave bc he feels good. This RN explained that it could be the phenobarbital making him feel good and was going to be released tomorrow 08/31. Pt did not want to stay despite the education.
--- NOTE | 2022-08-30 17:21 | DS.PCM_ITS ---
Providers Date of Admission: 08/28/22 Primary Care Physician: Dr. Dillon Deleon MD Reason For Visit: ETOH DETOX Diagnosis Discharge Diagnosis (1) Alcohol withdrawal: Status: Acute Code(s): F10.939 - Alcohol use, unspecified with withdrawal, unspecified Plan: Initiate treatment with phenobarbital. Thiamine and folate Supportive management with as needed medication Anticipate discharge on the . (2) Hardware failure: Status: Acute Plan: Left ankle Patient is already seen orthopedics and reports to me that there is been no concern for infection. Clinically, the joint is not warm nor erythematous Patient is to have surgery tentatively for sometime next week Given the patient's impetus for seeking treatment is so that he can undergo surgery and not go through withdrawal and this may not be a long-term recovery solution for him, will initiate oxycodone's as needed. Informed the patient this would be a low-dose. Anticipate the patient will be discharged with a low- dose of oxycodone as well as instructed to get [id number] lidocaine patches. Patient to see his orthopedic doctor on the and then to follow-up with cardiology for further evaluation on the . (3) Angina pectoris, unspecified: Status: Acute Code(s): I20.9 - Angina pectoris, unspecified Plan: Has seen cardiology as outpatient and has been reportedly is cleared. We will check an EKG here. Plan Chronic conditions * Coronary artery disease: Not on any statins nor any antiplatelet medications. Continue with metoprolol tartrate * Depression: Continue with desvenlafaxine VTE prophylaxis: Low risk not indicated. Medications at Discharge Home Medications metoprolol tartrate 50 mg tablet 100 mg PO DAILY high blood pressure 05/20/22 desvenlafaxine 100 mg tablet,extended release 24 hr 100 mg PO DAILY mood 08/28/22 oxycodone-acetaminophen 10 mg-325 mg tablet 1 tab PO Q8H PRN Pain 08/28/22 Hospital Course Operations None Procedures None Summary of Care Provided Minutes Spent on Discharge: 26 Hospital Course: Pt presented seeking treatment for alcohol withdrawal. He wanted to go through alcohol withdrawal in a controlled setting as he is to have surgery to remove loose hardware in his left ankle next week. He was started on phenobarbital taper. His course was uncomplicated. Last night he had sweats (which he typically develops during withdrawal). I spoke with him today about 1 more day. He was in agreement, to only decide to leave AMA in the afternoon. I was treating his pain with oxycodone. He will not receive a prescription on discharge since he is leaving AMA. Weight / BMI Weight Weight: 91.852 kg Body Mass Index (BMI) 29.0 ABG / Lab / Microbiology Data Result Diagrams: 08/28/22 09:50 08/28/22 09:50 Meaningful Use Info Meaningful Use Diagnoses (Choose all that apply): None applicable Discharge Plan Admission Admit Date/Time: 08/28/22 11:46 Attending Provider: Jake Martino Primary Care Provider: Dillon Deleon Discharge Orders/Prescriptions Prescriptions: No Action metoprolol tartrate 50 mg Tablet 100 mg PO DAILY oxycodone-acetaminophen 10-325 mg Tablet 1 tab PO Q8H PRN (Reason: Pain) desvenlafaxine 100 mg Tablet Extended Release 24 Hr 100 mg PO DAILY Referrals / Follow Up: Dillon Deleon MD [Primary Care Provider] - Care Physician,No Primary [Non-Staff] - Disposition Disposition (needs filled in before D/C Order can be placed): Against Medical Advice Charges/Coding Visit Charges Inpatient E&M: 15937 Disch Hosp
== END 2022-08-30 16:11 | disposition left against medical advice (07) | DRG 770 ==
LOC: ED 10:09 → MS3 11:15
PROVIDERS: Emergency Provider Student in an Organized Health Care Education/Training Program
DX: F10.239 Alcohol dependence with withdrawal, unspecified (principal); E43 Unspecified severe protein-calorie malnutrition; I20.9 Angina pectoris, unspecified; F17.210 Nicotine dependence, cigarettes, uncomplicated; I25.10 Atherosclerotic heart disease of native coronary artery without angina pectoris; Z95.5 Presence of coronary angioplasty implant and graft; F32.A Depression, unspecified; Y90.7 Blood alcohol level of 200-239 mg/100 ml; Z68.29 Body mass index [BMI] 29.0-29.9, adult
CPT/HCPCS: 80053; 80307; 82077; 83690; 85025; 93005; 97802; 99283; 99406; J7030; A4216; J2405

== ENCOUNTER 2022-09-23 10:49 | Inpatient (IN) | payer MEDICAID, SELFPAY ==
[2022-09-23] VITALS (7 sets, daily range): BP systolic 110–137; BP diastolic 70–100; PULSE 86–127; RESP 16–18; TEMP 36.4–37.3; O2SAT 95–99; BMI 64.2; BMI 29.1
--- NOTE | 2022-09-23 11:34 | EX.ED.SAOD ---
HPI History of Present Illness Chief Complaint: Substance Abuse Informant: patient and spouse/S.O. Narrative Narrative: Patient is a 32-year-old male with history of coronary artery disease, recent left ankle surgery through [facility] with Dr. Ashford, and alcohol abuse presenting for alcohol detox. Patient was actually admitted for detox from 08/28/08/30 but did leave AGAINST MEDICAL ADVICE. He had his leg surgery the following week and started drinking shortly after that as a way to deal with his pain. Patient states he has been drinking heavily for couple weeks now. He goes for about 19 cans of 25 ounce beer a day. Denies any drug use. Does use tobacco. His last drink was about an hour ago. He states he is starting to feel little shaky. He does have a history of DTs and seizure. He states this time he is recommend 180 to go to a rehab facility afterwards. He notes that before he had been sober for 7 years and had been taking naltrexone which helped him significantly. He states he lost his insurance and therefore stopped the naltrexone and started drinking again. He is concerned that he might have thrush in his mouth. He has a history of it. He states he is on Levaquin for his surgery. He is most to have his maryann out on Sunday (09/29). He has no other complaints at this time [facility] Medical History Angina pectoris, unspecified Back fracture ETOH abuse History of ankle fracture Hyponatremia Myocardial infarct Home Medications metoprolol tartrate 50 mg tablet 100 mg PO DAILY high blood pressure 05/20/22 [History Last Taken 08/27/22] desvenlafaxine 100 mg tablet,extended release 24 hr 100 mg PO DAILY mood 08/28/22 [History Last Taken 08/27/22] levofloxacin 500 mg tablet 500 mg PO DAILY 09/23/22 [History Last Taken Unknown] Allergy/AdvReac Type Severity Reaction Status Date / Time gabapentin Allergy Other Verified 08/28/22 09:21 onion Allergy Raw onions Verified 08/29/22 12:40 cause Migraines, cooked onions are ok per patient melatonin AdvReac Other Verified 08/28/22 09:21 Surgical History History of ankle surgery History of coronary angioplasty with insertion of stent Social History Smoking Status: Current every day smoker tobacco type: cigarettes alcohol intake: current alcohol intake frequency: 3 or more drinks per day Alcohol type: beer and hard liquor substance use type: does not use ROS ROS ED Constitutional Constitutional ED: Denies chills or fever(s) ENT ENT ED: Reports other Details: throat pain, white tongue ; Denies rhinorrhea or sore throat Cardiovascular Cardiovascular: Denies chest pain or palpitations Respiratory/Chest Respiratory/Chest: Denies cough Gastrointestinal Gastrointestinal: Denies abdominal pain, nausea or vomiting Musculoskeletal Musculoskeletal: Reports other Details: left ankle pain- recent surgery ; Denies arthralgias or myalgias Integumentary Reports other Details: Surgical incision with maryann on the left ankle ; Denies rash Neurologic Neurologic: Denies headache(s) or weakness Psychiatric Psychiatric: Reports other Details: Alcohol dependency ; Denies anxiety EXAM Physical Exam Const Vital Signs: 09/23/22 10:49 Temperature 97.5 F L Temperature Source Temporal Pulse Rate 93 Respiratory Rate 18 Blood Pressure 132/88 H Blood Pressure Mean 102 Pulse Ox 98 Oxygen Delivery Method Room Air Positive well nourished and well developed General Appearance ED: well developed and NAD HEENT Reports dry mucous membranes HEENT Narrative: Thick white plaque on the tongue that does not scrape off. Mouth ED: Yes dry mucous membranes Mouth: dry mucous membranes Eyes PERRL and EOMs intact bilaterally General Eye ED: Negative for scleral icterus Neck supple Lymph Lymphatic: no lymphadenopathy noted Chest Wall inspection of chest normal Resp normal respiratory effort and clear to auscultation bilaterally Cardio regular rate, regular rhythm and no murmurs GI soft to palpation, non-tender and non-distended Extremity Extremity Narrative: Localized edema to incision site on the left anterior ankle/baig. Maryann in place. No drainage. No findings consistent with surgical site infection. General Extremety ED: Yes edema General Extremity: edema Neuro oriented x3 Neuro Narrative: No tremor at this time Sensorium / Orientation: alert Motor Exam: Negative for general weakness Psych mental status grossly normal and thought process normal Skin Skin Narrative: Healing surgical incision left lower leg , see above MDM MDM MDM Narrative Medical decision making narrative: Patient is evaluated for request of alcohol detox. His last drink was this morning. Physical exam is remarkable for possible thrush to the tongue. Otherwise he is well-appearing. He has a healing surgical incision but does not appear infected. He is on prophylactic antibiotics still. Case is discussed with admitting physician, Dr. Martinez, who accepts the patient to his service. He is informed of my findings. EKG is obtained as patient does have a history of coronary artery disease however it does not appear ischemic at this time. History & Record Review Discussion w/independent historian: Patient and Family Additional record(s) reviewed:: Prior inpatient record (Recent admission for alcohol detox) Lab Data Attestation: I reviewed the patient's lab results. Labs: Laboratory Results - last 24 hr 09/23/22 09/23/22 09/23/22 11:30 11:30 11:30 WBC 9.9 RBC 5.46 Hgb 16.6 H Hct 48.0 MCV 87.9 MCH 30.4 MCHC 34.6 RDW Std Deviation 44.7 H RDW Coeff of Saji 14.0 Plt Count 426 MPV 9.6 Immature Gran % (Auto) 0.300 Neut % (Auto) 60.8 Lymph % (Auto) 31.3 [place] % (Auto) 6.4 Eos % (Auto) 0.5 Baso % (Auto) 0.7 Absolute Neuts (auto) 6.0 Absolute Lymphs (auto) 3.08 Nucleated RBC % 0 PT INR Sodium 133 L Potassium 3.9 Chloride 96 L Carbon Dioxide 22.0 Anion Gap 15 BUN 6 L Creatinine 0.82 Estim Creat Clear Calc 131.06 Est GFR (MDRD) Af Amer 138 Est GFR (MDRD) Non-Af 114 BUN/Creatinine Ratio 7.3 L Glucose 83 Calcium 9.1 Total Bilirubin 0.40 AST 35 ALT 47 Alkaline Phosphatase 165 H Total Protein 8.4 H Albumin 4.0 Globulin 4.4 H Albumin/Globulin Ratio 0.9 Urine Opiates Screen Urine Methadone Screen Ur Barbiturates Screen Ur Phencyclidine Scrn Ur Amphetamines Screen MDMA (Ecstasy) Screen U Benzodiazepines Scrn Urine Cocaine Screen U Cannabinoids Screen Ur Drug Screen Comment Ethyl Alcohol 349.0 H* 09/23/22 09/23/22 11:30 11:45 WBC RBC Hgb Hct MCV MCH MCHC RDW Std Deviation RDW Coeff of Saji Plt Count MPV Immature Gran % (Auto) Neut % (Auto) Lymph % (Auto) [place] % (Auto) Eos % (Auto) Baso % (Auto) Absolute Neuts (auto) Absolute Lymphs (auto) Nucleated RBC % PT 13.3 INR 1.0 Sodium Potassium Chloride Carbon Dioxide Anion Gap BUN Creatinine Estim Creat Clear Calc Est GFR (MDRD) Af Amer Est GFR (MDRD) Non-Af BUN/Creatinine Ratio Glucose Calcium Total Bilirubin AST ALT Alkaline Phosphatase Total Protein Albumin Globulin Albumin/Globulin Ratio Urine Opiates Screen NEGATIVE Urine Methadone Screen NEGATIVE Ur Barbiturates Screen NEGATIVE Ur Phencyclidine Scrn NEGATIVE Ur Amphetamines Screen NEGATIVE MDMA (Ecstasy) Screen NEGATIVE U Benzodiazepines Scrn NEGATIVE Urine Cocaine Screen NEGATIVE U Cannabinoids Screen NEGATIVE Ur Drug Screen Comment Ethyl Alcohol Rhythm Strip Rhythm Strip: Sinus Rhythm Rate: 79 Ectopy: None EKG Initial EKG: Attestation: I personally reviewed and interpreted this EKG as follows: Interpretation: Sinus Rhythm Comments: Normal sinus rhythm at a rate of 79 bpm Left axis deviation Prior inferior infarct T wave inversions in inferior leads with no reciprocal changes Prior EKG tracings: available for review Prior: Unchanged Discharge Plan Dx/Rx/DC Orders Clinical Impression: Alcohol dependence, Oral thrush Disposition Disposition: Acute Care Hospital [facility] Discharge Date/Time: 09/23/22 13:42
[2022-09-23 11:50] LABS: Absolute Lymphocyte Count 3.08 X10^3/uL (0.83-4.51); Basophil# 0.07 X10^3/uL; Basophil% 0.7 % (0-1); Eosinophil# 0.05 X10^3/uL; Eosinophils% 0.5 % (0-5); Hemoglobin 16.6 g/dL (13.0-16.5); Lymphocyte # 3.08 X10^3/ul (0.83-4.51); Lymphocyte % 31.3 % (19-41); Mean Corp Hgb Conc 34.6 g/dL (32-36); Mean Corpuscular Hgb 30.4 pg (27.0-32.0); Mean Corpuscular Volume 87.9 fL (80-94); Mean Platelet Vol. 9.6 fl (6.2-12.0); Monocyte# 0.63 X10^3/uL; Monocyte% 6.4 % (0-10); NRBC Flagged by Analyzer 0 % (0-5); Neutrophil # 5.99 X10^3/uL (2.7-7.7); Neutrophil % 60.8 % (47-70); Platelet Count 426 K/mm3 (150-450); RBC Distribution Width SD 44.7 fl (35.1-43.9); Red Blood Count 5.46 M/mm3 (4.6-6.2); White Blood Count 9.9 K/mm3 (4.4-11.0)
[2022-09-23 12:09] LABS: ALB/GLOB Ratio 0.9 RATIO (0.9-2.4); AST(SGOT) 35 U/L (15-37); Alanine Aminotransfer ALT/SGPT 47 U/L (16-61); Alkaline Phosphatase 165 U/L (45-117); Anion Gap 15 (5-15); BUN 6 mg/dL (7-18); BUN/Creat Ratio 7.3 RATIO (10-20); Calcium,Total 9.1 mg/dL (8.5-10.1); Chloride 96 mmol/L (98-107); Creatinine, Serum 0.82 mg/dL (0.70-1.30); EST Glomerular Filtration Rate 114 mL/min (>60); Est Glom Filt Rate - Afr Amer 138 mL/min (>60); Estimated Creatinine Clearance 131.06 ml/min; Globulin 4.4 g/dL (2.2-4.2); Glucose 83 mg/dL (74-106); Potassium 3.9 mmol/L (3.5-5.1); Protein, Total 8.4 g/dL (6.4-8.2); Sodium Level 133 mmol/L (136-145)
[2022-09-23 12:20] LABS: Amphetamine Urine VISTA NEGATIVE (<1000 ng/mL); Barbiturate Urine VISTA NEGATIVE (< 200 ng/mL); Benzodiazepine Urine VISTA NEGATIVE (< 200 ng/mL); Cocaine Urine VISTA NEGATIVE (< 300 ng/mL); Ecstacy Urine VISTA NEGATIVE (< 500 ng/mL); Methadone Urine VISTA NEGATIVE (< 300 ng/mL); PCP Urine VISTA NEGATIVE (< 25 ng/mL); THC Urine VISTA NEGATIVE (< 50 ng/mL); Vista UDS pH Range 5
--- NOTE | 2022-09-23 12:27 | HP.PCM.HOS_ITS ---
[facility] - General General Date of Admission: 09/23/22 Date of Service: 09/23/22 Chief Complaint: Patient came for treatment for alcohol withdrawal symptoms. Recent left ankle elective surgery. HPI Narrative MOHINDER FLORES, is a 32 M who was recently completed alcohol withdrawal program discharged on 08/30/2022 and then had surgery on 09/01/2022 for Left ankle hardware failure by orthopedic surgeon Dr. Ashford at [facility] and then he started drinking beer again. He states he drinks 19 cans of 25 ounce bottle every day. Patient came to ED to seek treatment for alcohol withdrawal and had last alcohol drink just couple hours before ED visit. Patient has history of alcohol withdrawal seizure couple years ago. He also gets visual and auditory hallucination. He also had muscle cramps, tremors. Currently feels some anxiety building up and restlessness. Labs, vitals and EKG reviewed. Vitals in normal range. [facility] Medical History Angina pectoris, unspecified Back fracture ETOH abuse History of ankle fracture Hyponatremia Myocardial infarct Home Medications metoprolol tartrate 50 mg tablet 100 mg PO DAILY high blood pressure 05/20/22 [History Last Taken 08/27/22] desvenlafaxine 100 mg tablet,extended release 24 hr 100 mg PO DAILY mood 08/28/22 [History Last Taken 08/27/22] levofloxacin 500 mg tablet 500 mg PO DAILY 09/23/22 [History Last Taken Unknown] Allergy/AdvReac Type Severity Reaction Status Date / Time gabapentin Allergy Other Verified 08/28/22 09:21 onion Allergy Raw onions Verified 08/29/22 12:40 cause Migraines, cooked onions are ok per patient melatonin AdvReac Other Verified 08/28/22 09:21 Surgical History History of ankle surgery History of coronary angioplasty with insertion of stent Social History Smoking Status: Current every day smoker tobacco type: cigarettes alcohol intake: current alcohol intake frequency: 3 or more drinks per day Alcohol type: beer and hard liquor substance use type: does not use Vital Signs Vital Signs Vital Signs: 09/23/22 10:49 Temperature 97.5 F L Temperature Source Temporal Pulse Rate 93 Respiratory Rate 18 Blood Pressure 132/88 H Blood Pressure Mean 102 Pulse Ox 98 Oxygen Delivery Method Room Air Weight Weight: 447 lb 12.141 oz Body Mass Index (BMI) 64.2 Physical Exam Narrative General: Alert, Oriented x3, Cooperative HEENT: Atraumatic, PERRLA, EOMI, Normocephalic Oral: Tongue coating. No thrush patch seen in oropharyngeal region. No Gingival or Mucosal Lesions/ Ulcerations Neck: Supple, No JVD, Negative Carotid Bruits Lungs: Air entry diminished in bilateral lung bases. No crepitation/rhonchi Cardiovascular: Regular rate, Regular Rhythm, Normal S1, Normal S2, No murmurs Abdomen: Bowel Sounds Present, Soft, Non Tender, Non-Distended : No renal angle tenderness. No suprapubic tenderness. Extremities: No edema, Capillary Refill Less than 3 Seconds Skin: Left ankle maryann intact. Musculoskeletal: No Tenderness to Palpation of Joints or Extremities Neurological: Cranial nerves II-XII grossly intact, DTR 2+/4 and Symmetrical, Neuro grossly intact Psych/Mental Status: Mild anxiety. Results Lab / Micro Data Result Diagrams: 09/23/22 11:30 09/23/22 11:30 Labs: Laboratory Results - last 24 hr 09/23/22 11:30: WBC 9.9, RBC 5.46, Hgb 16.6 H, Hct 48.0, MCV 87.9, MCH 30.4, MCHC 34.6, RDW Std Deviation 44.7 H, RDW Coeff of Saji 14.0, Plt Count 426, MPV 9.6, Immature Gran % (Auto) 0.300, Neut % (Auto) 60.8, Lymph % (Auto) 31.3, [place] % (Auto) 6.4, Eos % (Auto) 0.5, Baso % (Auto) 0.7, Absolute Neuts (auto) 6.0, Absolute Lymphs (auto) 3.08, Nucleated RBC % 0 09/23/22 11:30: Sodium 133 L, Potassium 3.9, Chloride 96 L, Carbon Dioxide 22.0, Anion Gap 15, BUN 6 L, Creatinine 0.82, Estim Creat Clear Calc 131.06, Est GFR (MDRD) Af Amer 138, Est GFR (MDRD) Non-Af 114, BUN/Creatinine Ratio 7.3 L, Glucose 83, Calcium 9.1, Total Bilirubin 0.40, AST 35, ALT 47, Alkaline Phosphatase 165 H, Total Protein 8.4 H, Albumin 4.0, Globulin 4.4 H, Albumin/Globulin Ratio 0.9 09/23/22 11:45: Urine Opiates Screen NEGATIVE, Urine Methadone Screen NEGATIVE, Ur Barbiturates Screen NEGATIVE, Ur Phencyclidine Scrn NEGATIVE, Ur Amphetamines Screen NEGATIVE, MDMA (Ecstasy) Screen NEGATIVE, U Benzodiazepines Scrn NEGATIVE, Urine Cocaine Screen NEGATIVE, U Cannabinoids Screen NEGATIVE, Ur Drug Screen Comment Rhythm Strip Rhythm Strip: Sinus Rhythm Rate: 79 Ectopy: None Assessment & Plan Assessment/Plan (1) Alcohol dependence: PLAN: Plan This is 32-year-old gentleman who came for treatment of acute alcohol withdrawal syndrome. 1. Acute alcohol withdrawal syndrome with history of chronic alcohol use disorder, relapse, dependence and tolerance: Patient is being admitted on Med Surg floor. Patient on phenobarbital based order set along with other adjunctive medications as needed for alcohol withdrawal symptom control. CIWA monitor. Serum alcohol level 349. Liver chemistry normal range except alkaline phosphatase 165. Albumin 4.0. A/G ratio 0.9. 2. Mild anxiety and depression: History of alcohol withdrawal seizure couple years ago. Patient on desvenlafaxine continued. 3. Recent left ankle surgery: The patient had? left ankle surgery by Dr. Ashford, [facility]. He said plates were removed but the screws were left in. Patient does not have activity restriction and he states weightbearing as per tolerated. No cast or cane. PT and OT ordered. He is supposed to see Dr. Castano on 09/29/2022 for staple removal. PT ordered. Patient was given levofloxacin but as patient will be on hydroxyzine and other medication which has QT prolongation interaction with Levaquin therefore Levaquin changed to Keflex. 4. 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 Normal sinus rhythm 79 beats 1, QTc 442 ms. DVT prophylaxis moderate risk due to left ankle surgery. Lovenox 40 mg subcu daily. CODE STATUS: Full code. Patient does not have advance directive Laboratory Results 09/23/22 11:30: WBC 9.9, RBC 5.46, Hgb 16.6 H, Hct 48.0, MCV 87.9, MCH 30.4, MCHC 34.6, RDW Std Deviation 44.7 H, RDW Coeff of Saji 14.0, Plt Count 426, MPV 9.6, Immature Gran % (Auto) 0.300, Neut % (Auto) 60.8, Lymph % (Auto) 31.3, [place] % (Auto) 6.4, Eos % (Auto) 0.5, Baso % (Auto) 0.7, Absolute Neuts (auto) 6.0, Absolute Lymphs (auto) 3.08, Nucleated RBC % 0 09/23/22 11:30: Sodium 133 L, Potassium 3.9, Chloride 96 L, Carbon Dioxide 22.0, Anion Gap 15, BUN 6 L, Creatinine 0.82, Estim Creat Clear Calc 131.06, Est GFR (MDRD) Af Amer 138, Est GFR (MDRD) Non-Af 114, BUN/Creatinine Ratio 7.3 L, Glucose 83, Calcium 9.1, Total Bilirubin 0.40, AST 35, ALT 47, Alkaline Phosphatase 165 H, Total Protein 8.4 H, Albumin 4.0, Globulin 4.4 H, Albumin/Globulin Ratio 0.9 09/23/22 11:30: Ethyl Alcohol 349.0 H* 09/23/22 11:30: PT Pending, INR Pending 09/23/22 11:45: Urine Opiates Screen NEGATIVE, Urine Methadone Screen NEGATIVE, Ur Barbiturates Screen NEGATIVE, Ur Phencyclidine Scrn NEGATIVE, Ur Amphetamines Screen NEGATIVE, MDMA (Ecstasy) Screen NEGATIVE, U Benzodiazepines Scrn NEGATIVE, Urine Cocaine Screen NEGATIVE, U Cannabinoids Screen NEGATIVE, Ur Drug Screen Comment Charges/Coding Visit Charges Inpatient E&M: 41711 Init Hosp L3
--- NOTE | 2022-09-23 12:57 | NURSING ---
MED SURG EPI ALCOHOL DEPENDENCE
[2022-09-23 13:32] LABS: Prothrombin Time (Protime)PT. 13.3 SECONDS (11.7-14.9)
[2022-09-23] MEDS: Cephalexin 500 MG Capsule PO ×2 (14:32→21:49)
[2022-09-23] MEDS: Ondansetron 8 MG Tablet PO ×2 (14:32→23:21)
[2022-09-23] MEDS: Phenobarbital 32.4 MG Tablet 64.8 MG PO ×3 (14:32→21:49)
[2022-09-23] MEDS: Enoxaparin 40 MG/0.4 ML Syringe SC (14:32)
[2022-09-23] MEDS: hydrOXYzine PAM 25 MG Capsule 50 MG PO ×2 (14:33→23:21)
[2022-09-23] MEDS: Acetaminophen 500 MG Tablet PO (14:33)
[2022-09-23] MEDS: Lactated Ringers 1,000 ML 125 ML IV (14:41)
[2022-09-23] MEDS: Metoprolol Tartrate 100 MG Tablet PO (18:28)
[2022-09-23] MEDS: Pantoprazole Sodium 40 MG Tablet PO (19:58)
[2022-09-23] MEDS: Dicyclomine 10 MG Capsule 20 MG PO (19:58)
[2022-09-23] MEDS: oxyCODONE 5 MG Tablet PO (19:58)
[2022-09-23] MEDS: QUEtiapine 25 MG Tablet 50 MG PO (19:59)
[2022-09-23] MEDS: traZODone 100 MG Tablet PO (23:21)
[2022-09-24] VITALS (7 sets, daily range): BP systolic 119–144; BP diastolic 71–85; PULSE 81–105; RESP 16–18; TEMP 36.5–36.9; O2SAT 96–100
[2022-09-24] MEDS: Phenobarbital 32.4 MG Tablet 64.8 MG PO ×6 (02:19→21:33)
[2022-09-24] MEDS: Cephalexin 500 MG Capsule PO ×3 (05:25→21:33)
[2022-09-24] MEDS: oxyCODONE 5 MG Tablet PO ×3 (05:25→18:26)
[2022-09-24 06:15] LABS: Magnesium 2.4 mg/dL (1.6-2.6); Phosphorus 4.3 mg/dL (2.5-4.9)
[2022-09-24] MEDS: Enoxaparin 40 MG/0.4 ML Syringe SC (10:16)
[2022-09-24] MEDS: Thiamine Hydrochloride 100 MG Tablet PO (10:16)
[2022-09-24] MEDS: Metoprolol Tartrate 100 MG Tablet PO (10:16)
[2022-09-24] MEDS: Folic Acid 1 MG Tablet PO (10:16)
[2022-09-24] MEDS: hydrOXYzine PAM 25 MG Capsule 50 MG PO ×3 (10:18→19:38)
[2022-09-24] MEDS: Pantoprazole Sodium 40 MG Tablet PO ×2 (10:18→21:33)
[2022-09-24] MEDS: QUEtiapine 25 MG Tablet 50 MG PO ×2 (10:18→21:33)
[2022-09-24] MEDS: Acetaminophen 500 MG Tablet PO (10:19)
[2022-09-24] MEDS: Ondansetron 8 MG Tablet PO ×2 (10:19→18:25)
[2022-09-24 10:29] LABS: Anion Gap 10 (5-15); BUN 9 mg/dL (7-18); Calcium,Total 9.1 mg/dL (8.5-10.1); Chloride 101 mmol/L (98-107); Creatinine, Serum 0.82 mg/dL (0.70-1.30); EST Glomerular Filtration Rate 114 mL/min (>60); Est Glom Filt Rate - Afr Amer 138 mL/min (>60); Estimated Creatinine Clearance 131.06 ml/min; Glucose 86 mg/dL (74-106); Potassium 4.7 mmol/L (3.5-5.1); Sodium Level 136 mmol/L (136-145)
[2022-09-24] MEDS: 0.9% Normal Saline 1,000 ML 100 ML IV (10:34)
--- NOTE | 2022-09-24 14:11 | PCM.PN.HOSP ---
Reason for Visit Reason for Visit: Diagnoses Alcohol dependence, uncomplicated (09/23/22) Follow-up for acute alcohol withdrawal syndrome. Objective Data Objective Data Vital Signs: Vital Signs Temp Pulse Resp BP Pulse Ox O2 Del Method 98.2 F 105 H 16 139/85 H 98 Room Air 09/24/22 10:00 09/24/22 10:16 09/24/22 10:00 09/24/22 10:16 09/24/22 10:00 09/24/22 10:00 Oxygen Delivery Method Room Air Weight: 203 lb 1.614 oz Body Mass Index (BMI) 29.1 Intake & Output: Intake and Output for Last 24 Hours 09/22/22 09/23/22 09/24/22 23:59 23:59 23:59 Intake Total 1000 / 1400 550 / 550 Output Total 650 / 650 750 / 750 Balance 350 / 750 -200 / -200 Lab / Micro Data Result Diagrams: 09/23/22 11:30 09/24/22 05:04 Labs: Laboratory Results - last 24 hr 09/24/22 05:04: Phosphorus 4.3, Magnesium 2.4 09/24/22 05:04: Sodium 136, Potassium 4.7, Chloride 101, Carbon Dioxide 25.0, Anion Gap 10, BUN 9, Creatinine 0.82, Estim Creat Clear Calc 131.06, Est GFR (MDRD) Af Amer 138, Est GFR (MDRD) Non-Af 114, BUN/Creatinine Ratio 11.0, Glucose 86, Calcium 9.1 Rhythm Strip Rhythm Strip: Sinus Rhythm Rate: 79 Ectopy: None Physical Exam Narrative Patient complaining of severe anxiety restlessness and right lower extremity pain yesterday evening. He was started on low-dose oxycodone as he cannot take ibuprofen with history of GI bleed in the past. Patient was started on Seroquel and his anxiety was better. States allergic to gabapentin and trazodone. General: Alert, Oriented x3, Cooperative HEENT: Atraumatic, PERRLA, EOMI, Normocephalic Oral: Tongue coating. No thrush patch seen in oropharyngeal region. No Gingival or Mucosal Lesions/ Ulcerations Neck: Supple, No JVD, Negative Carotid Bruits Lungs: Air entry diminished in bilateral lung bases. No crepitation/rhonchi Cardiovascular: Regular rate, Regular Rhythm, Normal S1, Normal S2, No murmurs Abdomen: Bowel Sounds Present, Soft, Non Tender, Non-Distended : No renal angle tenderness. No suprapubic tenderness. Extremities: No edema, Capillary Refill Less than 3 Seconds Skin: Left ankle maryann intact. Musculoskeletal: No Tenderness to Palpation of Joints or Extremities Neurological: Cranial nerves II-XII grossly intact, DTR 2+/4 and Symmetrical, Neuro grossly intact Psych/Mental Status: Anxiety and restlessness improving. Assessment & Plan Assessment/Plan (1) Alcohol dependence: PLAN: Plan This is 32-year-old gentleman who came for treatment of acute alcohol withdrawal syndrome. 1. Acute alcohol withdrawal syndrome with history of chronic alcohol use disorder, relapse, dependence and tolerance: Patient is being admitted on Medr floor. Patient on phenobarbital based order set along with other adjunctive medications as needed for alcohol withdrawal symptom control. CIWA monitor. Serum alcohol level 349. Liver chemistry normal range except alkaline phosphatase 165. Albumin 4.0. A/G ratio 0.9. 09/24: Patient on the above medications. CIWA score is 7. Seroquel was added in place of trazodone. Labs reviewed. Electrolytes are in normal range. 2. Mild anxiety and depression: History of alcohol withdrawal seizure couple years ago. Patient on desvenlafaxine continued. 3. Recent left ankle surgery: The patient had? left ankle surgery by Dr. Ashford, [facility]. He said plates were removed but the screws were left in. Patient does not have activity restriction and he states weightbearing as per tolerated. No cast or cane. PT and OT ordered. He is supposed to see Dr. Castano on 09/29/2022 for staple removal. PT ordered. Patient was given levofloxacin but as patient will be on hydroxyzine and other medication which has QT prolongation interaction with Levaquin therefore Levaquin changed to Keflex. 09/24: Complained of pain over left ankle and leg yesterday started low-dose oxycodone. Pain is improved. Soap and water wound cleaning and mupirocin. Wound nurse consult 4. 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 Normal sinus rhythm 79 beats 1, QTc 442 ms. DVT prophylaxis moderate risk due to left ankle surgery. Lovenox 40 mg subcu daily. CODE STATUS: Full code. Patient does not have advance directive Charges/Coding Visit Charges Inpatient E&M: 20349 Subs Hosp L2
[2022-09-24] MEDS: Dicyclomine 10 MG Capsule 20 MG PO (15:28)
[2022-09-24] MEDS: Mupirocin Ointment 22gm Tube 1 APPLIC TOPICAL (18:25)
[2022-09-24] MEDS: traZODone 100 MG Tablet PO (21:33)
[2022-09-25] MEDS: oxyCODONE 5 MG Tablet PO ×4 (02:02→21:27)
[2022-09-25] MEDS: Phenobarbital 32.4 MG Tablet 64.8 MG PO ×6 (02:02→21:27)
[2022-09-25 02:10] VITALS: BP 133/87; PULSE 86; RESP 18; TEMP 36.7; O2SAT 95
[2022-09-25] MEDS: Cephalexin 500 MG Capsule PO ×3 (05:27→21:04)
[2022-09-25 05:33] VITALS: BP 121/79; PULSE 76; RESP 17; TEMP 36.3; O2SAT 98
[2022-09-25 08:10] VITALS: BP 124/78; PULSE 91; RESP 18; TEMP 36.8; O2SAT 100
[2022-09-25] MEDS: Pantoprazole Sodium 40 MG Tablet PO ×2 (08:15→21:04)
[2022-09-25 08:19] VITALS: PULSE 91
[2022-09-25] MEDS: Folic Acid 1 MG Tablet PO (08:19)
[2022-09-25] MEDS: QUEtiapine 25 MG Tablet 50 MG PO ×2 (08:19→21:04)
[2022-09-25] MEDS: Metoprolol Tartrate 100 MG Tablet PO (08:19)
[2022-09-25] MEDS: Enoxaparin 40 MG/0.4 ML Syringe SC (08:20)
[2022-09-25] MEDS: Thiamine Hydrochloride 100 MG Tablet PO (08:20)
[2022-09-25] MEDS: hydrOXYzine PAM 25 MG Capsule 50 MG PO ×3 (08:29→21:27)
--- NOTE | 2022-09-25 08:38 | WOUNDNOTE ---
wound photo: left anterior ankle
[2022-09-25] MEDS: Senna Tablet 2 TABLET PO (09:50)
[2022-09-25] MEDS: Dicyclomine 10 MG Capsule 20 MG PO ×2 (09:51→18:42)
--- NOTE | 2022-09-25 14:01 | NURSING ---
Addendum entered by Giovanny Buitrago 09/25/22 14:04: [facility] at Original Note: recieved call for intake; pt will go to [facility] SundaySeptember 27 at 10am [place] [address]; phone # [phone]; fax # [phone] we are to fax his record and send a hard copy with pt.
[2022-09-25] MEDS: Ondansetron 8 MG Tablet PO (14:49)
[2022-09-25] MEDS: 0.9% Saline Lock 10 ML Syringe IV (14:52)
[2022-09-25 14:54] VITALS: BP 123/79; PULSE 76; RESP 19; TEMP 36.6; O2SAT 97
--- NOTE | 2022-09-25 16:56 | PCM.PN.HOSP ---
Reason for Visit Reason for Visit: Diagnoses Alcohol dependence, uncomplicated (09/23/22) Follow-up for acute alcohol withdrawal syndrome Objective Data Objective Data Vital Signs: Vital Signs Temp Pulse Resp BP Pulse Ox O2 Del Method 97.8 F 76 19 H 123/79 H 97 Room Air 09/25/22 14:54 09/25/22 14:54 09/25/22 14:54 09/25/22 14:54 09/25/22 14:54 09/25/22 14:54 Oxygen Delivery Method Room Air Weight: 203 lb 1.614 oz Body Mass Index (BMI) 29.1 Intake & Output: Intake and Output for Last 24 Hours 09/23/22 09/24/22 09/25/22 23:59 23:59 23:59 Intake Total 1000 / 1400 1550 / 2010 1380 / 1380 Output Total 650 / 650 1450 / 1450 350 / 350 Balance 350 / 750 100 / 560 1030 / 1030 Lab / Micro Data Result Diagrams: 09/23/22 11:30 09/24/22 05:04 Rhythm Strip Rhythm Strip: Sinus Rhythm Rate: 79 Ectopy: None Physical Exam Narrative Patient's symptoms of alcohol withdrawal are much better. Physical exam findings General: Alert, Oriented x3, Cooperative HEENT: Atraumatic, PERRLA, EOMI, Normocephalic Oral: Tongue coating. No thrush patch seen in oropharyngeal region. No Gingival or Mucosal Lesions/ Ulcerations Neck: Supple, No JVD, Negative Carotid Bruits Lungs: Air entry diminished in bilateral lung bases. No crepitation/rhonchi Cardiovascular: Regular rate, Regular Rhythm, Normal S1, Normal S2, No murmurs Abdomen: Bowel Sounds Present, Soft, Non Tender, Non-Distended : No renal angle tenderness. No suprapubic tenderness. Extremities: No edema, Capillary Refill Less than 3 Seconds Skin: Left ankle maryann intact. Musculoskeletal: No Tenderness to Palpation of Joints or Extremities Neurological: Cranial nerves II-XII grossly intact, DTR 2+/4 and Symmetrical, Neuro grossly intact Psych/Mental Status: Anxiety and restlessness improving. Assessment & Plan Assessment/Plan (1) Alcohol dependence: PLAN: Plan This is 32-year-old gentleman who came for treatment of acute alcohol withdrawal syndrome. 1. Acute alcohol withdrawal syndrome with history of chronic alcohol use disorder, relapse, dependence and tolerance: Patient is being admitted on MedSur floor. Patient on phenobarbital based order set along with other adjunctive medications as needed for alcohol withdrawal symptom control. CIWA monitor. Serum alcohol level 349. Liver chemistry normal range except alkaline phosphatase 165. Albumin 4.0. A/G ratio 0.9. 09/24: Patient on the above medications. CIWA score is 7. Seroquel was added in place of trazodone. Labs reviewed. Electrolytes are in normal range Patient was started on Seroquel and his anxiety was better. States allergic to gabapentin and trazodone. 2. Mild anxiety and depression: History of alcohol withdrawal seizure couple years ago. Patient on desvenlafaxine continued. 3. Recent left ankle surgery: The patient had? left ankle surgery by Dr. Ashford, [facility]. He said plates were removed but the screws were left in. Patient does not have activity restriction and he states weightbearing as per tolerated. No cast or cane. PT and OT ordered. He is supposed to see Dr. Castano on 09/29/2022 for staple removal. PT ordered. Patient was given levofloxacin but as patient will be on hydroxyzine and other medication which has QT prolongation interaction with Levaquin therefore Levaquin changed to Keflex..He was started on low-dose oxycodone as he cannot take ibuprofen with history of GI bleed in the past. 09/24: Complained of pain over left ankle and leg yesterday started low-dose oxycodone. Pain is improved. Soap and water wound cleaning and mupirocin. Wound nurse consult 09/25: 4. History of old DC: Twelve-lead EKG reviewed. 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 Normal sinus rhythm 79 beats 1, QTc 442 ms. DVT prophylaxis moderate risk due to left ankle surgery. Lovenox 40 mg subcu daily. CODE STATUS: Full code. Patient does not have advance directive Charges/Coding Visit Charges Inpatient E&M: 45576 Subs Hosp L2
[2022-09-25 21:15] VITALS: BP 123/89; PULSE 80; RESP 18; TEMP 36.6; O2SAT 97
[2022-09-25] MEDS: traZODone 100 MG Tablet PO (21:27)
[2022-09-26] MEDS: Phenobarbital 32.4 MG Tablet 64.8 MG PO ×2 (04:11→09:51)
[2022-09-26] MEDS: oxyCODONE 5 MG Tablet PO ×2 (04:11→09:51)
[2022-09-26] MEDS: Cephalexin 500 MG Capsule PO (04:11)
[2022-09-26 04:21] VITALS: BP 115/78; PULSE 70; RESP 18; TEMP 36.6; O2SAT 94
[2022-09-26 08:02] VITALS: BP 126/84; PULSE 76; RESP 17; TEMP 36.3; O2SAT 100
[2022-09-26] MEDS: Enoxaparin 40 MG/0.4 ML Syringe SC (08:03)
[2022-09-26] MEDS: Thiamine Hydrochloride 100 MG Tablet PO (08:04)
[2022-09-26 08:05] VITALS: PULSE 76
[2022-09-26] MEDS: Folic Acid 1 MG Tablet PO (08:05)
[2022-09-26] MEDS: Metoprolol Tartrate 100 MG Tablet PO (08:05)
[2022-09-26] MEDS: Pantoprazole Sodium 40 MG Tablet PO (08:06)
[2022-09-26] MEDS: QUEtiapine 25 MG Tablet 50 MG PO (08:07)
[2022-09-26] MEDS: hydrOXYzine PAM 25 MG Capsule 50 MG PO (08:14)
--- NOTE | 2022-09-26 09:14 | DCINST_ITS ---
Discharge Instructions Diet Discharge Diet: No restrictions Activity Discharge Activity: Return to Normal Activity Weight Bearing Status: Weight bearing as tolerated Dressing / Incision Call your doctor if you observe: Fever of 101 or Higher, Coldness, Increased Pain, Numbness or Tingling, Change in Color, Inability to urinate, Inability to have a bowel movement, Shortness of breath, Dizziness, Fainting spells, Swelling in the ankles, Chest pain, Prolonged hiccupping, Increased palpitations (irregular heartbeat) and Calf discomfort Follow Up Care When: IN 2 WEEKS Test Results: Test results from this visit will be discussed in further detail at your follow- up appointment, if applicable. Discharge Plan Admission Admit Date/Time: 09/23/22 12:21 Primary Reason for Your Visit: Acute alcohol withdrawal syndrome Attending Provider: Varun Kauffman Primary Care Provider: Dillon Deleon Discharge Orders/Prescriptions Prescriptions: New thiamine HCl (vitamin B1) [Vitamin B-1] 100 mg Tablet 100 mg PO DAILYCM Qty: 0 0RF cephalexin 500 mg Capsule 500 mg PO Q8 5 Days Qty: 15 0RF pantoprazole 40 mg Tablet,Delayed Release (Dr/Ec) 40 mg PO DAILY 30 Days Qty: 30 0RF nicotine 21 mg/24 hr Patch 24 Hour 21 mg transdermal DAILY 30 Days Qty: 0 0RF folic acid 1 mg Tablet 1 mg PO DAILY@0800 Qty: 0 0RF Continued metoprolol tartrate 50 mg Tablet 100 mg PO DAILY desvenlafaxine 100 mg Tablet Extended Release 24 Hr 100 mg PO DAILY Discontinued levofloxacin [Levaquin] 500 mg Tablet 500 mg PO DAILY Referrals / Follow Up: Dillon Deleon MD [Primary Care Provider] - Disposition Disposition (needs filled in before D/C Order can be placed): Home, Self Care
--- NOTE | 2022-09-26 09:19 | DS.PCM_ITS ---
Providers Date of Admission: 09/23/22 Date of Discharge: 09/26/22 Primary Care Physician: Dr. Dillon Deleon MD Consultations 09/24/22 14:14 Consult: Onc/Wound/social insurance adviser Routine Comment: Reason for Consult:: left ankle staple Reason For Visit: ALCOHOL USE DISORDER Diagnosis Discharge Diagnosis (1) Alcohol dependence: Status: Acute Code(s): F10.20 - Alcohol dependence, uncomplicated Plan This is 32-year-old gentleman who came for treatment of acute alcohol withdrawal syndrome. 1.? Acute alcohol withdrawal syndrome with history of chronic alcohol use disorder, relapse, dependence and tolerance: Patient is being admitted on Medr floor.? Patient on phenobarbital based order set along with other adjunctive medications as needed for alcohol withdrawal symptom control.? CIWA monitor.? Serum alcohol level 349.? Liver chemistry normal range except alkaline phosphatase 165.? Albumin 4.0.? A/G ratio 0.9. 09/24: Patient on the above medications.? CIWA score is 7.? Seroquel was added in place of trazodone.? Labs reviewed.? Electrolytes are in normal range? Patient was started on Seroquel and his anxiety was better.? States allergic to gabapentin and trazodone. 09/25: CIWA score is 4. Alcohol withdrawals have much improved. Patient is going to inpatient alcohol rehab program. 2.? Mild anxiety and depression: History of alcohol withdrawal seizure couple years ago.? Patient on desvenlafaxine continued. 3.? Recent left ankle surgery: The patient had? left ankle surgery by Dr. Ashford, [facility].? He said plates were removed but the screws were left in.? Patient does not have activity restriction and he states weightbearing as per tolerated.? No cast or cane.? PT and OT ordered.? He is supposed to see Dr. Castano on 09/29/2022 for staple removal.? PT ordered.? Patient was given levofloxacin but as patient will be on hydroxyzine and other medication which has QT prolongation interaction with Levaquin therefore Levaquin changed to Keflex..He was started on low-dose oxycodone as he cannot take ibuprofen with history of GI bleed in the past. 09/24: Complained of pain over left ankle and leg yesterday started low-dose oxyc odone.? Pain is improved.? Soap and water wound cleaning and mupirocin.? Wound nurse consult 09/26: Patient advised to follow-up with orthopedic surgeon on coming Sunday. Advised to use cane until then. ?4.? History of old FL: Twelve-lead EKG reviewed.? 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 Normal sinus rhythm 79 beats 1, QTc 442 ms.? DVT prophylaxis moderate risk due to left ankle surgery.? Lovenox 40 mg subcu daily. CODE STATUS: Full code.? Patient does not have advance directive Discharge medication reconciliation done. Discharge follow-up instructions completed. Discharge process discussed with the patient and all questions were answered to patient's satisfaction. Total time spent, exact 35 minutes on discharge meds reconciliation, examination, coordination of care with nurses and ancillary staff, review of imaging and blood test and discussion with the patient on follow-up instruc tions. Medications at Discharge Home Medications metoprolol tartrate 50 mg tablet 100 mg PO DAILY high blood pressure 05/20/22 desvenlafaxine 100 mg tablet,extended release 24 hr 100 mg PO DAILY mood 08/28/22 cephalexin 500 mg capsule 500 mg PO Q8 5 days #15 caps 09/26/22 folic acid 1 mg tablet 1 mg PO DAILY@0800 #0 tabs 09/26/22 nicotine 21 mg/24 hr daily transdermal patch 21 mg transdermal DAILY 30 days #0 ea 09/26/22 pantoprazole 40 mg tablet,delayed release 40 mg PO DAILY 30 days #30 tabs 09/26/22 thiamine HCl (vitamin B1) 100 mg tablet (Vitamin B-1) 100 mg PO DAILYCM #0 tabs 09/26/22 Physical Exam Narrative Patient's symptoms of alcohol withdrawal are much better. Physical exam findings General: Alert, Oriented x3, Cooperative HEENT: Atraumatic, PERRLA, EOMI, Normocephalic Oral: Tongue coating. No thrush patch seen in oropharyngeal region. No Gingival or Mucosal Lesions/ Ulcerations Neck: Supple, No JVD, Negative Carotid Bruits Lungs: Air entry diminished in bilateral lung bases. No crepitation/rhonchi Cardiovascular: Regular rate, Regular Rhythm, Normal S1, Normal S2, No murmurs Abdomen: Bowel Sounds Present, Soft, Non Tender, Non-Distended : No renal angle tenderness. No suprapubic tenderness. Extremities: No edema, Capillary Refill Less than 3 Seconds Skin: Left ankle maryann intact. Musculoskeletal: No Tenderness to Palpation of Joints or Extremities Neurological: Cranial nerves II-XII grossly intact, DTR 2+/4 and Symmetrical, Neuro grossly intact Psych/Mental Status: Anxiety and restlessness improving. Withdrawal symptoms are much improved Weight / BMI Weight Weight: 203 lb 1.614 oz Body Mass Index (BMI) 29.1 ABG / Lab / Microbiology Data Result Diagrams: 09/23/22 11:30 09/24/22 05:04 D/C Instructions Discharge Diet: No restrictions Weight Bearing Status: Weight bearing as tolerated Call your doctor if you observe: Fever of 101 or Higher, Coldness, Increased Pain, Numbness or Tingling, Change in Color, Inability to urinate, Inability to have a bowel movement, Shortness of breath, Dizziness, Fainting spells, Swelling in the ankles, Chest pain, Prolonged hiccupping, Increased palpitations (irregular heartbeat) and Calf discomfort When: IN 2 WEEKS Meaningful Use Info Meaningful Use Diagnoses (Choose all that apply): None applicable Discharge Plan Admission Admit Date/Time: 09/23/22 12:21 Primary Reason for Your Visit: Acute alcohol withdrawal syndrome Attending Provider: Varun Kauffman Primary Care Provider: Dillon Deleon Discharge Orders/Prescriptions Prescriptions: New thiamine HCl (vitamin B1) [Vitamin B-1] 100 mg Tablet 100 mg PO DAILYCM Qty: 0 0RF cephalexin 500 mg Capsule 500 mg PO Q8 5 Days Qty: 15 0RF pantoprazole 40 mg Tablet,Delayed Release (Dr/Ec) 40 mg PO DAILY 30 Days Qty: 30 0RF nicotine 21 mg/24 hr Patch 24 Hour 21 mg transdermal DAILY 30 Days Qty: 0 0RF folic acid 1 mg Tablet 1 mg PO DAILY@0800 Qty: 0 0RF Continued metoprolol tartrate 50 mg Tablet 100 mg PO DAILY desvenlafaxine 100 mg Tablet Extended Release 24 Hr 100 mg PO DAILY Discontinued levofloxacin [Levaquin] 500 mg Tablet 500 mg PO DAILY Referrals / Follow Up: Dillon Deleon MD [Primary Care Provider] - Disposition Disposition (needs filled in before D/C Order can be placed): Home, Self Care Charges/Coding Visit Charges Inpatient E&M: 18445 Disch Hosp >30min
--- NOTE | 2022-09-26 09:39 | PHA.DC.MR ---
Pharmacy Service has performed discharge medication reconciliation for this patient. The patient's discharge medication list was reviewed for discrepancies and discrepancies were resolved. Home Medications metoprolol tartrate 50 mg tablet 100 mg PO DAILY high blood pressure 05/20/22 desvenlafaxine 100 mg tablet,extended release 24 hr 100 mg PO DAILY mood 08/28/22 cephalexin 500 mg capsule 500 mg PO Q8 5 days #15 caps 09/26/22 folic acid 1 mg tablet 1 mg PO DAILY@0800 #0 tabs 09/26/22 nicotine 21 mg/24 hr daily transdermal patch 21 mg transdermal DAILY 30 days #0 ea 09/26/22 pantoprazole 40 mg tablet,delayed release 40 mg PO DAILY 30 days #30 tabs 09/26/22 thiamine HCl (vitamin B1) 100 mg tablet (Vitamin B-1) 100 mg PO DAILYCM #0 tabs 09/26/22
== END 2022-09-26 09:57 | disposition home or self-care (01) | DRG 775 ==
LOC: ED 12:26 → MS3 12:55
PROVIDERS: Admitting Provider Internal Medicine; Emergency Provider Emergency Medicine; Referring Provider Emergency Medicine; Visit Provider Internal Medicine
DX: F10.939 Alcohol use, unspecified with withdrawal, unspecified (principal); B37.0 Candidal stomatitis; I25.10 Atherosclerotic heart disease of native coronary artery without angina pectoris; F17.210 Nicotine dependence, cigarettes, uncomplicated; M25.572 Pain in left ankle and joints of left foot; I25.2 Old myocardial infarction; F41.9 Anxiety disorder, unspecified; Z95.5 Presence of coronary angioplasty implant and graft; F32.A Depression, unspecified; Y90.8 Blood alcohol level of 240 mg/100 ml or more
CPT/HCPCS: 36415; 80048; 80053; 80307; 82077; 83735; 84100; 85025; 85610; 93005; 97162; 97802; 99284; J7030; J7120; A4216

== ENCOUNTER 2023-05-04 22:01 | Emergency (ER) | payer MEDICAID, SELFPAY ==
[2023-05-04 22:03] VITALS: BP 143/85; PULSE 124; RESP 17; TEMP 36.6; O2SAT 93; BMI 37.7
--- NOTE | 2023-05-04 22:22 | EX.ED.DYSGE1 ---
HPI History of Present Illness Chief Complaint: Med Refill Informant: patient Narrative Narrative: Patient is a 33-year-old male with past medical history of alcohol abuse and reported previous CAD requiring stent placement. He states he has been taking Suboxone and using it as control to help prevent any alcohol use and he states he has been sober for 8 months. He states that his last prescription was not filled appropriately and he has now run out and been off the medication for 10 to 14 days. He states he is not due to see his provider and get a refill for an other week to 10 days. He states that he is now having muscle aches abdominal discomfort nausea and loose stool and has concerned that he is going through withdrawal and secondary to this comes in for evaluation. [facility] Medical History Alcohol dependence Angina pectoris, unspecified Back fracture ETOH abuse History of ankle fracture Hyponatremia Myocardial infarct Home Medications metoprolol tartrate 50 mg tablet 100 mg PO DAILY high blood pressure 05/20/22 [History Last Taken 08/27/22] desvenlafaxine 100 mg tablet,extended release 24 hr 100 mg PO DAILY mood 08/28/22 [History Last Taken 08/27/22] cephalexin 500 mg capsule 500 mg PO Q8 5 days #15 caps 09/26/22 [Rx Last Taken Unknown] folic acid 1 mg tablet 1 mg PO DAILY@0800 #0 tabs 09/26/22 [Rx Last Taken Unknown] nicotine 21 mg/24 hr daily transdermal patch 21 mg transdermal DAILY 30 days #0 ea 09/26/22 [Rx Last Taken Unknown] pantoprazole 40 mg tablet,delayed release 40 mg PO DAILY 30 days #30 tabs 09/26/22 [Rx Last Taken Unknown] thiamine HCl (vitamin B1) 100 mg tablet (Vitamin B-1) 100 mg PO DAILYCM #0 tabs 09/26/22 [Rx Last Taken Unknown] clonidine HCl 0.3 mg tablet 0.3 mg PO 4X/DAY 5 days #20 tabs 05/04/23 [Rx Last Taken Unknown] Allergy/AdvReac Type Severity Reaction Status Date / Time gabapentin Allergy Other Verified 08/28/22 09:21 onion Allergy Raw onions Verified 08/29/22 12:40 cause Migraines, cooked onions are ok per patient melatonin AdvReac Other Verified 08/28/22 09:21 Surgical History History of ankle surgery History of coronary angioplasty with insertion of stent Social History Smoking Status: Current every day smoker tobacco type: cigarettes alcohol intake: current alcohol intake frequency: 3 or more drinks per day Alcohol type: beer and hard liquor substance use type: does not use ROS ROS ED Constitutional Constitutional ED: Denies chills or fever(s) ENT ENT ED: Reports rhinorrhea; Denies sore throat Cardiovascular Cardiovascular: Denies chest pain Respiratory/Chest Respiratory/Chest: Denies cough or dyspnea Gastrointestinal Gastrointestinal: Reports diarrhea and nausea; Denies abdominal pain or vomiting Genitourinary Genitourinary ED: Denies dysuria Musculoskeletal Musculoskeletal: Reports myalgias Integumentary Denies rash Neurologic Neurologic: Denies headache(s) Psychiatric Psychiatric: Reports anxiety Hematologic/Lymphatic Hematologic/Lymphatic: Denies easy bleeding or easy bruising EXAM Physical Exam Const Vital Signs: 05/04/23 22:03 Temperature 97.9 F Temperature Source Temporal Pulse Rate 124 H Respiratory Rate 17 Blood Pressure 143/85 H Blood Pressure Mean 104 Pulse Ox 93 Oxygen Delivery Method Room Air Positive well nourished and well developed General Appearance ED: well developed HEENT Reports moist mucous membranes HEENT Narrative: No signs of infection noted in the posterior pharynx No airway edema or compromise Eyes PERRL and EOMs intact bilaterally General Eye ED: Negative for scleral icterus Neck supple Neck Narrative: No nuchal rigidity or meningeal signs noted Resp normal respiratory effort Resp Narrative: Breath sounds are slight diminished throughout with faint expiratory wheeze diffusely consistent with history of smoking Cardio regular rhythm Rate: tachycardic GI non-tender and non-distended GI Narrative: Abdomen is soft nontender nondistended with hyperactive bowel sounds no voluntary guarding or rigidity or pulsatile mass Auscultation: hyperactive bowel sounds Palpation: soft Extremity normal to inspection Neuro oriented x3 and CN's II-XII intact bilaterally Sensorium / Orientation: alert Psych Psych Narrative: Patient has a nervous/anxious affect Skin no rashes or lesions noted General Skin Exam: Negative for jaundice MDM MDM MDM Narrative Medical decision making narrative: Patient presented to the ER mildly hypertensive and tachycardic but otherwise with stable vitals. History and exam is most consistent with medication withdrawal. The patient does not have sick symptoms to suggest URI or biliary colic or pancreatitis. He also does not report any type of psychosis or suicidal/homicidal ideation and there is no need for psychiatric evaluation. At this time I am unable to provide the Suboxone as I do not have a [employer] license that allows me to prescribe this medication. Therefore in order to help with withdrawal symptoms I will provide clonidine on and off label basis but as he is not showing signs of being unstable or having a secondary infection or need for psychiatric admission he is otherwise safe for discharge. History & Record Review Discussion w/independent historian: Patient Discharge Plan Triage Chief Complaint: Med Refill ED Provider: Carmelo Henry Dx/Rx/DC Orders Clinical Impression: Encounter for medication refill, Medication withdrawal, History of alcohol abuse Instructions: ED Opioid Withdrawal Prescriptions: New clonidine HCl 0.3 mg tablet 0.3 mg PO 4X/DAY 5 Days Qty: 20 0RF No Action metoprolol tartrate 50 mg Tablet 100 mg PO DAILY desvenlafaxine 100 mg Tablet Extended Release 24 Hr 100 mg PO DAILY thiamine HCl (vitamin B1) [Vitamin B-1] 100 mg Tablet 100 mg PO DAILYCM Qty: 0 0RF cephalexin 500 mg Capsule 500 mg PO Q8 5 Days Qty: 15 0RF pantoprazole 40 mg Tablet,Delayed Release (Dr/Ec) 40 mg PO DAILY 30 Days Qty: 30 0RF nicotine 21 mg/24 hr Patch 24 Hour 21 mg transdermal DAILY 30 Days Qty: 0 0RF folic acid 1 mg Tablet 1 mg PO DAILY@0800 Qty: 0 0RF Referrals: Dillon Deleon MD [Non-Staff] - Activity Restrictions/Additional Instructions: Please follow-up with your normal doctor to refill your Suboxone and in the meantime use the clonidine as directed to help prevent withdrawal symptoms. Return to the ER should you have any further concerns Disposition Disposition: Home, Self Care
[2023-05-04] MEDS: Clonidine HCl 0.1 MG, Clonidine HCl 0.2 MG 0.3 MG PO (23:52)
== END 2023-05-04 23:54 | disposition home or self-care (01) ==
PROVIDERS: Emergency Provider Emergency Medicine; Visit Provider Emergency Medicine
DX: Z76.0 Encounter for issue of repeat prescription (principal); F19.230 Other psychoactive substance dependence with withdrawal, uncomplicated; F10.10 Alcohol abuse, uncomplicated; I25.10 Atherosclerotic heart disease of native coronary artery without angina pectoris; I25.2 Old myocardial infarction; Z95.5 Presence of coronary angioplasty implant and graft; F17.210 Nicotine dependence, cigarettes, uncomplicated
CPT/HCPCS: 99282